=== PATIENT | male | born 1960 | race Caucasian/White ===

== ENCOUNTER 2017-10-05 11:47 | Outpatient (CLI) | payer OTHER ==
[~2017-10-05 11:47] MED LIST: HYDR-569 PO; METH500T6 PO
== END 2017-10-05 23:59 | disposition home or self-care (01) ==
LOC: VAS 11:47
PROVIDERS: ATTEND Family Medicine
DX: R59.9 Enlarged lymph nodes, unspecified (principal); Z86.718 Personal history of other venous thrombosis and embolism
CPT/HCPCS: 93971

== ENCOUNTER 2017-12-17 08:08 | Outpatient (CLI) | payer OTHER ==
[2017-12-17 08:48] LABS: BASOPHILS # (AUTO) 0.1 X10'3 (0-0.2); BASOPHILS % (AUTO) 1.2 % (0-1); EOSINOPHILS # (AUTO) 0.5 X10'3 (0-0.9); EOSINOPHILS % (AUTO) 7.7 % (0-6); HEMATOCRIT 43.1 % (42.0-52.0); HEMOGLOBIN 14.9 g/dl (14.0-17.9); LYMPHOCYTES # (AUTO) 1.4 X10'3 (1.1-4.8); LYMPHOCYTES % (AUTO) 20.7 % (21-51); MEAN CORPUSCULAR HEMOGLOBIN 29.2 PG (27.0-31.0); MEAN CORPUSCULAR HGB CONC 34.7 % (33.0-36.5); MEAN CORPUSCULAR VOLUME 84.2 FL (78-98); MEAN PLATELET VOLUME 8.5 FL (7.4-10.4); MONOCYTES # (AUTO) 0.4 X10'3 (0-0.9); MONOCYTES % (AUTO) 6.1 % (2-12); NEUTROPHILS # (AUTO) 4.3 X10'3 (1.8-7.7); NEUTROPHILS % (AUTO) 64.3 % (42-75); PLATELET COUNT 163 X10'3 (140-440); RED BLOOD COUNT 5.13 X10'6 (4.70-6.10); RED CELL DISTRIBUTION WIDTH 15.5 % (11.5-14.5); WHITE BLOOD COUNT 6.8 X10'3 (4.5-11.0)
[2017-12-17 08:51] LABS: CLARITY,URINE CLEAR (Clear); COLOR,URINE YELLOW (Yellow); GLUCOSE, URINE NEGATIVE (Neg); KETONES,URINE NEGATIVE (Neg); LEUKOCYTE ESTERASE ,URINE NEGATIVE (Neg); NITRITES, URINE NEGATIVE (Neg); OCCULT BLOOD,URINE NEGATIVE (Neg); PROTEIN,URINE NEGATIVE (Neg); UA COLLECTION TYPE CLN CATCH MIDSTREAM; UROBILINOGEN,URINE 0.2 E.U/dL (0.2-1.0)
[2017-12-17 09:31] LABS: ALANINE AMINOTRANSFERASE 26 U/L (12-78); ALBUMIN 3.6 G/DL (3.4-5.0); ALKALINE PHOSPHATASE 102 IU/L (46-116); ANION GAP 9 (8-16); ASPARTATE AMINO TRANSFERASE 17 U/L (10-37); BILIRUBIN,TOTAL 0.8 MG/DL (0.1-1.0); BLOOD UREA NITROGEN 24 MG/DL (7-18); BUN/CREATININE RATIO 25.5 (5.4-32.0); CHLORIDE 108 MMOL/L (99-107); CREATININE 0.94 MG/DL (0.60-1.10); GLUCOSE 113 MG/DL (70-104); SODIUM 145 MMOL/L (135-145); TOTAL CARBON DIOXIDE 28.1 MMOL/L (24-32); TOTAL PROTEIN 7.1 G/DL (6.4-8.2); eGFR 83 ML/MIN
[2017-12-17 09:32] LABS: CHOL/HDL RATIO 4.6 (0.00-4.99); CHOLESTEROL 187 MG/DL (0-200); HDL CHOLESTEROL 41 MG/DL (35-60); LDL CHOLESTEROL 133 MG/DL (50-100); TRIGLYCERIDES 56 MG/DL (20-135)
[2017-12-17 09:37] LABS: POTASSIUM 4.2 MMOL/L (3.5-5.1)
== END 2017-12-17 23:59 | disposition home or self-care (01) ==
LOC: LAB 08:08
PROVIDERS: ATTEND Family Medicine
DX: Z00.00 Encounter for general adult medical examination without abnormal findings (principal)
CPT/HCPCS: 36415; 80053; 80061; 81003; 84402; 84403; 84439; 84443; 85025

== ENCOUNTER 2018-01-08 11:34 | Outpatient (CLI) | payer OTHER ==
[2018-01-08 12:23] LABS: HEMATOCRIT 40.3 % (42.0-52.0); HEMOGLOBIN 13.8 g/dl (14.0-17.9); MEAN CORPUSCULAR HEMOGLOBIN 29.3 PG (27.0-31.0); MEAN CORPUSCULAR HGB CONC 34.2 % (33.0-36.5); MEAN CORPUSCULAR VOLUME 85.7 FL (78-98); MEAN PLATELET VOLUME 8.4 FL (7.4-10.4); PLATELET COUNT 201 X10'3 (140-440); RED CELL DISTRIBUTION WIDTH 15.8 % (11.5-14.5); WHITE BLOOD COUNT 6.7 X10'3 (4.5-11.0)
[2018-01-08 12:45] LABS: BASOPHILS % (MANUAL) 2 % (0-1); EOSINOPHILS % (MANUAL) 7 % (0-6); LYMPHOCYTES % (MANUAL) 32 % (21-51); MONOCYTES % (MANUAL) 6 % (2-12); NEUTROPHILS % (MANUAL) 47 % (42-75); PLATELET ESTIMATE NORMAL; REACTIVE LYMPHOCYTES % 6 % (0-0); TOTAL CELLS COUNTED 100
[2018-01-08 12:47] LABS: ANISOCYTOSIS 1+
== END 2018-01-08 23:59 ==
LOC: LAB 11:34
PROVIDERS: ATTEND Family Medicine
DX: K62.5 Hemorrhage of anus and rectum (principal)
CPT/HCPCS: 36415; 85025

== ENCOUNTER 2018-01-08 14:16 | Emergency (ER) | payer OTHER ==
[~2018-01-08] VITALS: Ht 180.3 cm; Wt 157.0 kg
[2018-01-08 15:19] LABS: ALANINE AMINOTRANSFERASE 23 U/L (12-78); ALBUMIN 3.3 G/DL (3.4-5.0); ALBUMIN/GLOBULIN RATIO 1.1 (1.1-1.5); ALKALINE PHOSPHATASE 90 IU/L (46-116); ANION GAP 6 (8-16); ASPARTATE AMINO TRANSFERASE 15 U/L (10-37); BILIRUBIN,TOTAL 0.6 MG/DL (0.1-1.0); BLOOD UREA NITROGEN 21 MG/DL (7-18); BUN/CREATININE RATIO 21.2 (5.4-32.0); CHLORIDE 109 MMOL/L (99-107); CREATININE 0.99 MG/DL (0.60-1.10); GLUCOSE 88 MG/DL (70-104); SODIUM 146 MMOL/L (135-145); TOTAL CARBON DIOXIDE 31.1 MMOL/L (24-32); TOTAL PROTEIN 6.3 G/DL (6.4-8.2); eGFR 78 ML/MIN
[2018-01-08 16:06] VITALS: BP 131/72
== END 2018-01-08 16:08 | disposition home or self-care (01) ==
LOC: ER 14:16
DX: K92.2 Gastrointestinal hemorrhage, unspecified (principal); Z98.890 Other specified postprocedural states; Z79.899 Other long term (current) drug therapy
CPT/HCPCS: 36415; 80053; 99284

== ENCOUNTER 2018-02-11 10:12 | Day surgery (SDC) | payer OTHER ==
[~2018-02-11] VITALS: Ht 182.9 cm; Wt 152.3 kg
[2018-02-11 10:22] VITALS: BP 140/92
[2018-02-11] MEDS ORDERED: MIDAZolam 5mg/5ml vial ONE (10:29)
[2018-02-11] MEDS ORDERED: fentaNYL/PF 50MCG/1 ML 2ML syringe ONE (10:29)
[2018-02-11] MEDS ORDERED: NO HOME MEDS (10:34)
[2018-02-11 12:11] VITALS: BP 138/84
[2018-02-11 12:21] VITALS: BP 139/76
[2018-02-11 12:31] VITALS: BP 128/72
== END 2018-02-11 12:50 | disposition home or self-care (01) ==
LOC: GI LAB 10:12
PROVIDERS: ATTEND Internal Medicine Gastroenterology
DX: K64.0 First degree hemorrhoids (principal); K57.30 Diverticulosis of large intestine without perforation or abscess without bleeding; G47.33 Obstructive sleep apnea (adult) (pediatric); Z90.49 Acquired absence of other specified parts of digestive tract; Z90.89 Acquired absence of other organs; Z72.89 Other problems related to lifestyle; Z79.899 Other long term (current) drug therapy; Z98.890 Other specified postprocedural states; Z88.5 Allergy status to narcotic agent
CPT/HCPCS: 45378; 99152; J2250; J3010; J7030; 50555; A4620; G0500

== ENCOUNTER 2018-07-07 10:12 | Outpatient (CLI) | payer OTHER ==
[~2018-07-07 10:12] MED LIST changes: -HYDR-569 PO; -METH500T6 PO; +NO HOME MEDS
[2018-07-07 11:06] LABS: BASOPHILS # (AUTO) 0.1 X10'3 (0-0.2); BASOPHILS % (AUTO) 0.9 % (0-1); EOSINOPHILS # (AUTO) 0.3 X10'3 (0-0.9); EOSINOPHILS % (AUTO) 5.1 % (0-6); HEMATOCRIT 41.9 % (42.0-52.0); LYMPHOCYTES # (AUTO) 1.7 X10'3 (1.1-4.8); LYMPHOCYTES % (AUTO) 24.6 % (21-51); MEAN CORPUSCULAR HEMOGLOBIN 29.4 PG (27.0-31.0); MEAN CORPUSCULAR HGB CONC 33.4 % (33.0-36.5); MEAN CORPUSCULAR VOLUME 87.8 FL (78-98); MEAN PLATELET VOLUME 8.1 FL (7.4-10.4); MONOCYTES # (AUTO) 0.4 X10'3 (0-0.9); MONOCYTES % (AUTO) 6.4 % (2-12); NEUTROPHILS # (AUTO) 4.3 X10'3 (1.8-7.7); PLATELET COUNT 197 X10'3 (140-440); RED BLOOD COUNT 4.77 X10'6 (4.70-6.10); RED CELL DISTRIBUTION WIDTH 14.6 % (11.5-14.5); WHITE BLOOD COUNT 6.8 X10'3 (4.5-11.0)
[2018-07-07 11:16] LABS: ALANINE AMINOTRANSFERASE 24 U/L (12-78); ALBUMIN 3.5 G/DL (3.4-5.0); ALBUMIN/GLOBULIN RATIO 1.1 (1.1-1.5); ALKALINE PHOSPHATASE 98 IU/L (46-116); ANION GAP 9 (8-16); ASPARTATE AMINO TRANSFERASE 20 U/L (10-37); BILIRUBIN,TOTAL 0.8 MG/DL (0.1-1.0); BLOOD UREA NITROGEN 19 MG/DL (7-18); BUN/CREATININE RATIO 19.8 (5.4-32.0); CALCIUM 8.9 MG/DL (8.5-10.1); CHLORIDE 104 MMOL/L (99-107); CHOL/HDL RATIO 4.5 (0.00-4.99); CHOLESTEROL 187 MG/DL (0-200); CREATININE 0.96 MG/DL (0.60-1.10); GLUCOSE 117 MG/DL (70-104); HDL CHOLESTEROL 42 MG/DL (35-60); LDL CHOLESTEROL 123 MG/DL (50-100); POTASSIUM 3.9 MMOL/L (3.5-5.1); SODIUM 144 MMOL/L (135-145); TOTAL CARBON DIOXIDE 31.4 MMOL/L (24-32); TOTAL PROTEIN 6.7 G/DL (6.4-8.2); TRIGLYCERIDES 87 MG/DL (20-135); eGFR 81 ML/MIN
[2018-07-07 12:12] LABS: CLARITY,URINE CLEAR (Clear); COLOR,URINE YELLOW (Yellow); GLUCOSE, URINE NEGATIVE (Neg); KETONES,URINE NEGATIVE (Neg); LEUKOCYTE ESTERASE ,URINE NEGATIVE (Neg); NITRITES, URINE NEGATIVE (Neg); OCCULT BLOOD,URINE NEGATIVE (Neg); PROTEIN,URINE NEGATIVE (Neg); UROBILINOGEN,URINE 0.2 E.U/dL (0.2-1.0)
[2018-07-07 12:18] LABS: UA COLLECTION TYPE CLN CATCH MIDSTREAM
== END 2018-07-07 23:59 | disposition home or self-care (01) ==
LOC: 64 CT 10:12
PROVIDERS: ATTEND Family Medicine
DX: Z12.5 Encounter for screening for malignant neoplasm of prostate (principal); N20.0 Calculus of kidney; K42.9 Umbilical hernia without obstruction or gangrene; K76.9 Liver disease, unspecified; E66.9 Obesity, unspecified; E29.1 Testicular hypofunction; R73.03 Prediabetes
CPT/HCPCS: 36415; 74176; 80053; 80061; 81003; 84153; 84439; 84443; 85025

== ENCOUNTER 2018-07-09 09:10 | Outpatient (CLI) | payer OTHER ==
[2018-07-09] MEDS ORDERED: iohexol 300mg/ml 100ml inj. ONE (09:18)
== END 2018-07-09 23:59 | disposition home or self-care (01) ==
LOC: 64 CT 09:10
PROVIDERS: ATTEND Family Medicine
DX: N28.89 Other specified disorders of kidney and ureter (principal); K76.89 Other specified diseases of liver; Z90.49 Acquired absence of other specified parts of digestive tract
CPT/HCPCS: 74160; Q9967

== ENCOUNTER 2018-10-21 18:49 | Inpatient (IN) | payer OTHER ==
[~2018-10-21] VITALS: Ht 182.9 cm; Wt 155.0 kg
[2018-10-21 19:27] LABS: BASOPHILS % (AUTO) 0.3 % (0-1); EOSINOPHILS # (AUTO) 0.3 X10'3 (0-0.9); EOSINOPHILS % (AUTO) 3.8 % (0-6); HEMATOCRIT 42.7 % (42.0-52.0); HEMOGLOBIN 14.4 g/dl (14.0-17.9); LYMPHOCYTES # (AUTO) 1.6 X10'3 (1.1-4.8); LYMPHOCYTES % (AUTO) 20.9 % (21-51); MEAN CORPUSCULAR HEMOGLOBIN 29.7 PG (27.0-31.0); MEAN CORPUSCULAR HGB CONC 33.8 g/dL (33.0-36.5); MEAN CORPUSCULAR VOLUME 87.9 FL (78-98); MEAN PLATELET VOLUME 8.6 FL (7.4-10.4); MONOCYTES # (AUTO) 0.5 X10'3 (0-0.9); MONOCYTES % (AUTO) 6.6 % (2-12); NEUTROPHILS # (AUTO) 5.3 X10'3 (1.8-7.7); NEUTROPHILS % (AUTO) 68.4 % (42-75); PLATELET COUNT 206 X10'3 (140-440); RED BLOOD COUNT 4.85 X10'6 (4.70-6.10); RED CELL DISTRIBUTION WIDTH 14.8 % (11.5-14.5); WHITE BLOOD COUNT 7.7 X10'3 (4.5-11.0)
[2018-10-21 19:41] LABS: ALANINE AMINOTRANSFERASE 24 U/L (12-78); ALBUMIN/GLOBULIN RATIO 1.3 (1.1-1.5); ALKALINE PHOSPHATASE 89 IU/L (46-116); ANION GAP 11 (8-16); ASPARTATE AMINO TRANSFERASE 18 U/L (10-37); BILIRUBIN,TOTAL 0.9 MG/DL (0.1-1.0); BLOOD UREA NITROGEN 22 MG/DL (7-18); BUN/CREATININE RATIO 19.8 (5.4-32.0); CALCIUM 9.5 MG/DL (8.5-10.1); CHLORIDE 103 MMOL/L (99-107); CREATININE 1.11 MG/DL (0.60-1.10); GLUCOSE 118 MG/DL (70-104); POTASSIUM 4.1 MMOL/L (3.5-5.1); SODIUM 143 MMOL/L (135-145); TOTAL CARBON DIOXIDE 29.5 MMOL/L (24-32); TOTAL PROTEIN 7.2 G/DL (6.4-8.2); eGFR 69 ML/MIN
[2018-10-21 19:42] LABS: INR 1.1 INR; PROTHROMBIN TIME 11.4 SECONDS (9.0-12.0)
[2018-10-21 19:46] LABS: TROPONIN I < 0.04 NG/ML (0.0-0.05)
[2018-10-21 19:53] LABS: CLARITY,URINE CLEAR (Clear); COLOR,URINE YELLOW (Yellow); GLUCOSE, URINE NEGATIVE (Neg); KETONES,URINE NEGATIVE (Neg); LEUKOCYTE ESTERASE ,URINE NEGATIVE (Neg); NITRITES, URINE NEGATIVE (Neg); OCCULT BLOOD,URINE NEGATIVE (Neg); PROTEIN,URINE NEGATIVE (Neg); UROBILINOGEN,URINE 0.2 E.U/dL (0.2-1.0)
[2018-10-21 19:56] LABS: UA COLLECTION TYPE VOIDED
--- NOTE | 2018-10-21 20:30 | NUR ---
PT COMPLAINS OF INTERMITTENT LOWER ABD PAIN, PER PT STARTS MID EPIGASTRIC AND RADIATES TO LEFT AND RIGHT, PT REPORTS SITTING UP AT EDGE OF THE BED IS HIS POSITION OF COMFORT.
[2018-10-21] MEDS ORDERED: diphenhydrAMINE 50 mg/ml inj IV ONE (20:55)
[2018-10-21] MEDS ORDERED: LORazepam 2 mg/ml vial IV ONE (20:55)
[2018-10-21] MEDS ORDERED: metoclopramide 5 mg/ml inj IV ONE (20:55)
[2018-10-21] MEDS ORDERED: morphine 4 MG/ML inj SYRINge IV ONE (20:55)
[2018-10-21] MEDS ORDERED: temazepam 15mg capsule PO PRN (21:00)
--- NOTE | 2018-10-21 21:00 | NUR ---
PER MD BYNUM NO NEED FOR NG TUBE AT THIS TIME.
--- NOTE | 2018-10-21 22:19 | NUR ---
PT APPEARS TO BE SLEEPING.
[2018-10-21] MEDS ORDERED: normal saline 1000ML IV soln IVB ONE (23:20)
[2018-10-21] MEDS: normal saline 1000ml 1,000 ML IV SCH (23:37)
[2018-10-21] MEDS ORDERED: magnesium hydroxide 30ml (MOM) UD suspension PO PRN (23:40)
[2018-10-21] MEDS ORDERED: mag hydrox/Alum hydrox/simeth 30ml oral suspension PO PRN (23:40)
[2018-10-21] MEDS ORDERED: HYDROcodone/acetaminophen 10/325mg tab PO PRN (23:40)
[2018-10-21] MEDS ORDERED: acetaminophen 325mg tablet PO PRN ×2 (23:40)
[2018-10-21] MEDS ORDERED: morphine 4 MG/ML inj SYRINge IV PRN (23:40)
[2018-10-22] VITALS (17 sets, daily range): BP systolic 137–172; BP diastolic 70–112
--- NOTE | 2018-10-22 | NUR ---
Patient c/o full bladder and unable to void. straight cath inserted, only 50cc drained. Patient helped to stand up and voided 400cc into urinal.
--- NOTE | 2018-10-22 00:32 | NUR ---
PT MOVED FROM ED BED 5 TO ED BED 7 AND PLACED ON HOSPITAL BED.
--- NOTE | 2018-10-22 02:53 | NUR ---
PT UP TO USE THE RESTROOM, REMAINS PAIN FREE.
[2018-10-22 07:56] LABS: BASOPHILS % (AUTO) 0.6 % (0-1); EOSINOPHILS # (AUTO) 0.2 X10'3 (0-0.9); EOSINOPHILS % (AUTO) 4.2 % (0-6); HEMATOCRIT 41.3 % (42.0-52.0); HEMOGLOBIN 13.9 g/dl (14.0-17.9); LYMPHOCYTES # (AUTO) 1.3 X10'3 (1.1-4.8); LYMPHOCYTES % (AUTO) 23.1 % (21-51); MEAN CORPUSCULAR HEMOGLOBIN 29.4 PG (27.0-31.0); MEAN CORPUSCULAR HGB CONC 33.7 g/dL (33.0-36.5); MEAN CORPUSCULAR VOLUME 87.3 FL (78-98); MEAN PLATELET VOLUME 8.4 FL (7.4-10.4); MONOCYTES # (AUTO) 0.3 X10'3 (0-0.9); MONOCYTES % (AUTO) 5.9 % (2-12); NEUTROPHILS # (AUTO) 3.8 X10'3 (1.8-7.7); NEUTROPHILS % (AUTO) 66.2 % (42-75); PLATELET COUNT 164 X10'3 (140-440); RED BLOOD COUNT 4.73 X10'6 (4.70-6.10); RED CELL DISTRIBUTION WIDTH 14.9 % (11.5-14.5); WHITE BLOOD COUNT 5.8 X10'3 (4.5-11.0)
[2018-10-22 08:18] LABS: ALBUMIN 3.6 G/DL (3.4-5.0); ANION GAP 7 (8-16); BLOOD UREA NITROGEN 15 MG/DL (7-18); BUN/CREATININE RATIO 16.7 (5.4-32.0); CALCIUM 8.9 MG/DL (8.5-10.1); CHLORIDE 107 MMOL/L (99-107); GLUCOSE 104 MG/DL (70-104); SODIUM 144 MMOL/L (135-145); TOTAL CARBON DIOXIDE 29.9 MMOL/L (24-32); eGFR 87 ML/MIN
[2018-10-22] MEDS: normal saline 1000ml 1,000 ML IV SCH ×2 (09:37→19:37)
[2018-10-22] MEDS ORDERED: CALCIUM PO (13:11)
[2018-10-22] MEDS ORDERED: MULTIVITAMIN PO (13:11)
[2018-10-22] MEDS ORDERED: OPC PO (13:11)
[2018-10-22] MEDS ORDERED: COQ PO (13:11)
[2018-10-22] MEDS ORDERED: VITAMIN B COMPLEX (13:11)
[2018-10-22] MEDS ORDERED: ceFAZolin 1000mg inj ONE (16:00)
[2018-10-22] MEDS ORDERED: BUPIVAcaine/PF 2.5mg/ml (0.25%) 10ml vial ONE (16:00)
--- NOTE | 2018-10-22 16:30 | NUR ---
Patient to OR.
[2018-10-22] MEDS ORDERED: fentaNYL /PF 50mcg/ml 5ml ampule ONE (16:50)
[2018-10-22] MEDS ORDERED: ringers solution, lacted 1,000 ML IV SCH (18:17)
[2018-10-22] MEDS ORDERED: ondansetron/PF 4mg/2ml inj IV PRN ×2 (18:20→19:15)
[2018-10-22] MEDS ORDERED: fentaNYL/PF 50MCG/1 ML 2ML syringe IV PRN (18:20)
[2018-10-22] MEDS ORDERED: meperidine/PF 25mg/ml syringe IV PRN ×2 (18:20)
[2018-10-22] MEDS ORDERED: LIDOcaine 1%/PF 5ML 10 MG/ML VIAL ONE (18:30)
--- NOTE | 2018-10-22 18:30 | NUR ---
Patient in room [facility]. I have received report from Loree luque and had the opportunity to ask questions and assume patient care.
[2018-10-22] MEDS ORDERED: ondansetron/PF 4mg/2ml inj ONE (18:31)
[2018-10-22] MEDS ORDERED: propofol inj 20 ML IV ONE (18:31)
[2018-10-22] MEDS ORDERED: glycopyrrolate 0.2mg/ml inj ONE (18:33)
[2018-10-22] MEDS ORDERED: sugammadex 200mg/2ml injection IV ONE (19:01)
[2018-10-22] MEDS ORDERED: labetalol 20mg/4ml (5mg/ml) syringe IV ONE (19:08)
--- NOTE | 2018-10-22 19:09 | NUR ---
At this time patient remains off the floor.
[2018-10-22] MEDS ORDERED: naloxone 0.4 mg/ml inj ONE (19:11)
[2018-10-22] MEDS ORDERED: HYDROcodone/acetaminophen 10/325mg tab PO PRN (19:15)
--- NOTE | 2018-10-22 19:25 | NUR ---
Received from OR via bed, accompanied by Anesthesiologist. Report received. Initial physical assessment done and recorded.
[2018-10-22] MEDS: fentaNYL/PF 50MCG/1 ML 2ML syringe IV PRN ×2 (19:31→19:38)
[2018-10-22] MEDS ORDERED: HYDROcodone/acetaminophen 10/325mg tab PO ONE (20:20)
--- NOTE | 2018-10-22 20:25 | NUR ---
Discharge criteria met, report to receiving floor. Transferred to room in stable condition. accompanied patient to room, medicaated upon arrival with [place], contiuous pulse ox and CPAP ordered.
[2018-10-22] MEDS: potassium CL 20mEq in D5-1/2NS 1,000 ML IV SCH (22:57)
[2018-10-22] MEDS ORDERED: LIDOcaine 2% 10ml TOPICAL JELLY (Urojet) MM ONE (23:40)
[2018-10-23] VITALS: BP 156/89
[2018-10-23] MEDS: ceFAZolin inj. 1,000 MG in dextrose 5%-water 50ml 50 ML IV SCH ×3 (00:36→16:23)
[2018-10-23 00:45] VITALS: BP 168/91
[2018-10-23] MEDS: morphine 4 MG/ML inj SYRINge IV PRN ×2 (02:18→07:26)
[2018-10-23] MEDS: potassium CL 20mEq in D5-1/2NS 1,000 ML IV SCH ×4 (03:11→23:37)
[2018-10-23] MEDS: HYDROcodone/acetaminophen 5mg/325mg tablet PO PRN (05:06)
[2018-10-23] MEDS: normal saline 1000ml 1,000 ML IV SCH ×2 (05:37→14:44)
--- NOTE | 2018-10-23 06:25 | NUR ---
Problems reprioritized. Patient report given, questions answered & plan of care reviewed with Florence ALONZO.
[2018-10-23 07:00] LABS: ALBUMIN 3.5 G/DL (3.4-5.0); ANION GAP 11 (8-16); BLOOD UREA NITROGEN 13 MG/DL (7-18); BUN/CREATININE RATIO 12.9 (5.4-32.0); CALCIUM 8.8 MG/DL (8.5-10.1); CHLORIDE 104 MMOL/L (99-107); CREATININE 1.01 MG/DL (0.60-1.10); GLUCOSE 199 MG/DL (70-104); SODIUM 142 MMOL/L (135-145); TOTAL CARBON DIOXIDE 26.7 MMOL/L (24-32); eGFR 76 ML/MIN
[2018-10-23 07:14] LABS: BASOPHILS % (AUTO) 0 % (0-1); EOSINOPHILS # (AUTO) 0.1 X10'3 (0-0.9); EOSINOPHILS % (AUTO) 1.2 % (0-6); HEMATOCRIT 41.7 % (42.0-52.0); HEMOGLOBIN 14.1 g/dl (14.0-17.9); LYMPHOCYTES # (AUTO) 0.3 X10'3 (1.1-4.8); LYMPHOCYTES % (AUTO) 3.8 % (21-51); MEAN CORPUSCULAR HEMOGLOBIN 29.7 PG (27.0-31.0); MEAN CORPUSCULAR HGB CONC 33.9 g/dL (33.0-36.5); MEAN CORPUSCULAR VOLUME 87.7 FL (78-98); MEAN PLATELET VOLUME 9.2 FL (7.4-10.4); MONOCYTES % (AUTO) 0.4 % (2-12); NEUTROPHILS # (AUTO) 7.8 X10'3 (1.8-7.7); NEUTROPHILS % (AUTO) 94.6 % (42-75); PLATELET COUNT 181 X10'3 (140-440); RED BLOOD COUNT 4.75 X10'6 (4.70-6.10); WHITE BLOOD COUNT 8.2 X10'3 (4.5-11.0)
[2018-10-23 08:00] VITALS: BP 155/83
[2018-10-23 11:00] VITALS: BP 151/75
[2018-10-23] MEDS: ondansetron/PF 4mg/2ml inj IV PRN (12:29)
[2018-10-23] MEDS ORDERED: metoclopramide 5 mg/ml inj IV PRN (16:20)
--- NOTE | 2018-10-23 18:33 | NUR ---
Patient in room [facility]. I have received report from Florence ALONZO and had the opportunity to ask questions and assume patient care.
[2018-10-23] MEDS ORDERED: oxyCODONE/APAP 10/325mg tablet PO PRN ×2 (18:40)
[2018-10-23 19:00] VITALS: BP 153/80
[2018-10-24] VITALS: BP 131/70
[2018-10-24 06:08] LABS: BASOPHILS % (AUTO) 0.3 % (0-1); EOSINOPHILS # (AUTO) 0.1 X10'3 (0-0.9); EOSINOPHILS % (AUTO) 1.4 % (0-6); HEMATOCRIT 36.9 % (42.0-52.0); HEMOGLOBIN 12.4 g/dl (14.0-17.9); LYMPHOCYTES # (AUTO) 1.3 X10'3 (1.1-4.8); LYMPHOCYTES % (AUTO) 13.6 % (21-51); MEAN CORPUSCULAR HEMOGLOBIN 29.7 PG (27.0-31.0); MEAN CORPUSCULAR HGB CONC 33.7 g/dL (33.0-36.5); MEAN CORPUSCULAR VOLUME 88.2 FL (78-98); MEAN PLATELET VOLUME 8.8 FL (7.4-10.4); MONOCYTES # (AUTO) 0.6 X10'3 (0-0.9); MONOCYTES % (AUTO) 6.7 % (2-12); NEUTROPHILS # (AUTO) 7.4 X10'3 (1.8-7.7); PLATELET COUNT 153 X10'3 (140-440); RED BLOOD COUNT 4.18 X10'6 (4.70-6.10); WHITE BLOOD COUNT 9.4 X10'3 (4.5-11.0)
[2018-10-24 06:22] LABS: ALBUMIN 3.1 G/DL (3.4-5.0); ANION GAP 7 (8-16); BLOOD UREA NITROGEN 9 MG/DL (7-18); BUN/CREATININE RATIO 9.2 (5.4-32.0); CALCIUM 8.6 MG/DL (8.5-10.1); CHLORIDE 106 MMOL/L (99-107); CREATININE 0.98 MG/DL (0.60-1.10); GLUCOSE 126 MG/DL (70-104); POTASSIUM 3.6 MMOL/L (3.5-5.1); SODIUM 143 MMOL/L (135-145); TOTAL CARBON DIOXIDE 29.8 MMOL/L (24-32); eGFR 79 ML/MIN
--- NOTE | 2018-10-24 06:53 | NUR ---
Problems reprioritized. Patient report given, questions answered & plan of care reviewed with Florence ALNOZO.
[2018-10-24 07:00] VITALS: BP 166/93
[2018-10-24] MEDS: HYDROcodone/acetaminophen 5mg/325mg tablet PO PRN (07:54)
[2018-10-24] MEDS: ketorolac trometh. 30mg/ml inj. IV PRN ×2 (07:54→21:09)
[2018-10-24 11:00] VITALS: BP 139/77
[2018-10-24] MEDS: potassium CL 20mEq in D5-1/2NS 1,000 ML IV SCH (11:11)
[2018-10-24] MEDS: oxyCODONE/APAP 5-325mg tablet PO PRN ×2 (12:17→18:13)
--- NOTE | 2018-10-24 18:30 | NUR ---
Patient in room [facility]. I have received report from MIKY and had the opportunity to ask questions and assume patient care.
[2018-10-24 19:20] VITALS: BP 157/80
[2018-10-25] VITALS: BP 152/76
[2018-10-25] MEDS: oxyCODONE/APAP 5-325mg tablet PO PRN (03:30)
--- NOTE | 2018-10-25 03:34 | NUR ---
PT HAD +GAS AND + LOOSE BM
[2018-10-25 05:35] LABS: ALBUMIN 3.2 G/DL (3.4-5.0); ANION GAP 8 (8-16); BLOOD UREA NITROGEN 14 MG/DL (7-18); BUN/CREATININE RATIO 16.7 (5.4-32.0); CALCIUM 8.8 MG/DL (8.5-10.1); CHLORIDE 106 MMOL/L (99-107); CREATININE 0.84 MG/DL (0.60-1.10); GLUCOSE 104 MG/DL (70-104); POTASSIUM 3.9 MMOL/L (3.5-5.1); SODIUM 143 MMOL/L (135-145); TOTAL CARBON DIOXIDE 28.9 MMOL/L (24-32); eGFR > 90 ML/MIN
[2018-10-25 05:40] LABS: BASOPHILS # (AUTO) 0.1 X10'3 (0-0.2); BASOPHILS % (AUTO) 0.9 % (0-1); EOSINOPHILS # (AUTO) 0.3 X10'3 (0-0.9); HEMATOCRIT 38.9 % (42.0-52.0); LYMPHOCYTES # (AUTO) 1.2 X10'3 (1.1-4.8); LYMPHOCYTES % (AUTO) 18.2 % (21-51); MEAN CORPUSCULAR HEMOGLOBIN 29.6 PG (27.0-31.0); MEAN CORPUSCULAR HGB CONC 33.5 g/dL (33.0-36.5); MEAN CORPUSCULAR VOLUME 88.2 FL (78-98); MEAN PLATELET VOLUME 9.2 FL (7.4-10.4); MONOCYTES # (AUTO) 0.6 X10'3 (0-0.9); MONOCYTES % (AUTO) 8.7 % (2-12); NEUTROPHILS # (AUTO) 4.7 X10'3 (1.8-7.7); NEUTROPHILS % (AUTO) 68.2 % (42-75); PLATELET COUNT 127 X10'3 (140-440); RED BLOOD COUNT 4.41 X10'6 (4.70-6.10); RED CELL DISTRIBUTION WIDTH 15.2 % (11.5-14.5); WHITE BLOOD COUNT 6.9 X10'3 (4.5-11.0)
--- NOTE | 2018-10-25 06:05 | NUR ---
Problems reprioritized. Patient report given, questions answered & plan of care reviewed with HERNANDEZ.
--- NOTE | 2018-10-25 06:35 | NUR ---
Patient in room [facility]. I have received report from OLIVIA ALONZO and had the opportunity to ask questions and assume patient care.
[2018-10-25 06:38] VITALS: BP 158/73
[2018-10-25 07:00] VITALS: BP 158/73
[2018-10-25] MEDS: ondansetron/PF 4mg/2ml inj IV PRN (08:42)
[2018-10-25 11:00] VITALS: BP 160/85
[2018-10-25 11:22] VITALS: BP 160/85
[2018-10-25] MEDS ORDERED: AMLO5TAB4 PO (12:49)
[2018-10-25] MEDS ORDERED: amLODIPine 5mg tablet PO ONE (12:50)
[2018-10-25] MEDS ORDERED: PANT40TA4 PO (12:53)
[2018-10-25] MEDS ORDERED: ONDA4TAB6 PO (12:53)
[2018-10-25] MEDS: ketorolac trometh. 30mg/ml inj. IV PRN (13:42)
== END 2018-10-25 14:30 | disposition home or self-care (01) | DRG 354 ==
LOC: ER 18:50 → ED HOLD 23:37 → SUR 3N 10-22 08:01
PROVIDERS: ADMIT Hospitalist; ATTEND Family Medicine
PROC: 0WUF4JZ Supplement Abdominal Wall with Synthetic Substitute, Percutaneous Endoscopic Approach (ICD-10-PCS; principal; 2018-10-22 17:30)
PROC: 5A09357 Assistance with Respiratory Ventilation, Less than 24 Consecutive Hours, Continuous Positive Airway Pressure (ICD-10-PCS; 2018-10-25)
DX: K42.0 Umbilical hernia with obstruction, without gangrene (principal); K56.7 Ileus, unspecified; Z68.42 Body mass index [BMI] 45.0-49.9, adult; E66.01 Morbid (severe) obesity due to excess calories; K76.9 Liver disease, unspecified; N28.89 Other specified disorders of kidney and ureter; Z87.442 Personal history of urinary calculi; Z90.49 Acquired absence of other specified parts of digestive tract
CPT/HCPCS: 96374; 96375; 99285; Z7506; 36415; 71045; 74176; 80048; 80053; 81003; 84484; 85025; 85610; 87070; 93005; A7000; C1758; C1781; C9399; G0378; J0690; J1200; J1885; J2001; J2060; J2270; J2310; J2405; J2704; J2765; J3010; J3490; J7030; J7060; J7120

== ENCOUNTER 2018-10-31 17:15 | Emergency (ER) | payer OTHER ==
[~2018-10-31] VITALS: Ht 182.9 cm; Wt 150.0 kg
[~2018-10-31 17:15] MED LIST changes: +AMLO5TAB4 PO; +CALCIUM PO; +COQ PO; +MULTIVITAMIN PO; -NO HOME MEDS; +ONDA4TAB6 PO; +PANT40TA4 PO; +VITAMIN B COMPLEX
[2018-10-31 18:31] VITALS: BP 159/87
[2018-10-31 18:44] LABS: CLARITY,URINE CLEAR (Clear); COLOR,URINE AMBER (Yellow); GLUCOSE, URINE NEGATIVE (Neg); KETONES,URINE NEGATIVE (Neg); LEUKOCYTE ESTERASE ,URINE NEGATIVE (Neg); NITRITES, URINE NEGATIVE (Neg); OCCULT BLOOD,URINE TRACE-INTACT (Neg); PH,URINE 7.5 (4.8-8.0); PROTEIN,URINE NEGATIVE (Neg); UROBILINOGEN,URINE 0.2 E.U/dL (0.2-1.0)
[2018-10-31 18:45] LABS: UA COLLECTION TYPE STRAIGHT CATH
[2018-10-31 19:02] LABS: BACTERIA,URINE NONE SEEN /HPF (Neg); MUCUS STRANDS FEW /LPF (Neg); SQUAMOUS EPITHELIAL CELL,UR NONE SEEN /LPF (FEW); WBC,URINE 0-4 /HPF (0-4)
[2018-10-31 19:03] LABS: AMORPHOUS PHOSPHATES 2+
--- NOTE | 2018-10-31 19:04 | NUR ---
PT HAS COUDE PICKENS IN PLACE WITH LEG BAG. PT EDUCATED ABOUT PICKENS CARE, EMPTYING BAG, HYGIENE. PT STATED UNDERSTANDING OF INSTRUCTIONS AND CAUTIONS.
[2018-10-31] MEDS ORDERED: PER5325T PO (19:17)
== END 2018-10-31 19:38 | disposition home or self-care (01) ==
LOC: ER 17:16
DX: R33.9 Retention of urine, unspecified (principal); Z87.442 Personal history of urinary calculi; Z88.6 Allergy status to analgesic agent; Z98.890 Other specified postprocedural states; Z79.899 Other long term (current) drug therapy; Z90.49 Acquired absence of other specified parts of digestive tract
CPT/HCPCS: 51702; 81001; 99284

== ENCOUNTER 2018-11-03 11:42 | Emergency (ER) | payer OTHER ==
[~2018-11-03] VITALS: Ht 182.9 cm; Wt 150.0 kg
[~2018-11-03 11:42] MED LIST changes: +PER5325T PO
--- NOTE | 2018-11-03 12:45 | NUR ---
Spoke to Dr. Rosenbaum regarding pt's symptoms. Upon entering the pt's room, his catheter was out of the stat-lock and hanging with the full weight of the leg bag pulling against pt's catheter. Per Dr. Rosenbaum's reccomendation the catheter balloon was deflated, catheter was advanced and balloon was then reinflated. This immediately relieved patient's complaints of severe penile pain. Pt was educated on proper use of the stat-lock as well as attachment of the leg bag.
[2018-11-03 13:38] VITALS: BP 160/105
== END 2018-11-03 13:40 | disposition home or self-care (01) ==
LOC: ER 11:44
DX: T83.038A Leakage of other urinary catheter, initial encounter (principal); Z90.49 Acquired absence of other specified parts of digestive tract; Z88.6 Allergy status to analgesic agent
CPT/HCPCS: 99284

== ENCOUNTER 2018-11-05 09:07 | Emergency (ER) | payer OTHER ==
[~2018-11-05] VITALS: Ht 177.8 cm; Wt 140.0 kg
[2018-11-05 09:29] VITALS: BP 167/107
== END 2018-11-05 10:23 | disposition home or self-care (01) ==
LOC: ER 09:08
DX: T83.038D Leakage of other urinary catheter, subsequent encounter (principal); Z90.49 Acquired absence of other specified parts of digestive tract; Z88.5 Allergy status to narcotic agent; Z79.899 Other long term (current) drug therapy
CPT/HCPCS: 99281

== ENCOUNTER 2018-11-07 20:38 | Emergency (ER) | payer OTHER ==
[~2018-11-07] VITALS: Ht 182.9 cm; Wt 119.0 kg
[2018-11-07 20:47] VITALS: BP 135/91
--- NOTE | 2018-11-07 21:29 | NUR ---
BLADDER IRRIGATED, PER [facility] ORDER. NO RESISTANCE NOTED; URINE FLOWING WITHOUT ISSUE. PT DENIED PAIN.
== END 2018-11-07 21:47 | disposition home or self-care (01) ==
LOC: ER 20:39
DX: T83.83XA Hemorrhage due to genitourinary prosthetic devices, implants and grafts, initial encounter (principal); Z90.49 Acquired absence of other specified parts of digestive tract; Z88.6 Allergy status to analgesic agent; Y73.8 Miscellaneous gastroenterology and urology devices associated with adverse incidents, not elsewhere classified; Y92.89 Other specified places as the place of occurrence of the external cause
CPT/HCPCS: 51700; 99284

== ENCOUNTER 2018-11-12 05:47 | Emergency (ER) | payer OTHER ==
[~2018-11-12] VITALS: Ht 198.1 cm; Wt 150.0 kg
[2018-11-12] MEDS ORDERED: acetaminophen 325mg tablet PO STA (06:18)
[2018-11-12] MEDS ORDERED: acetaminophen 325mg tablet PO ONE (06:20)
[2018-11-12] MEDS ORDERED: normal saline 1000ML IV soln IV ONE (06:20)
[2018-11-12 07:11] LABS: BASOPHILS % (AUTO) 0.2 % (0-1); EOSINOPHILS # (AUTO) 0.1 X10'3 (0-0.9); EOSINOPHILS % (AUTO) 1.3 % (0-6); HEMATOCRIT 38.4 % (42.0-52.0); HEMOGLOBIN 13.1 g/dl (14.0-17.9); LYMPHOCYTES # (AUTO) 0.5 X10'3 (1.1-4.8); LYMPHOCYTES % (AUTO) 5.3 % (21-51); MEAN CORPUSCULAR HEMOGLOBIN 29.3 PG (27.0-31.0); MEAN CORPUSCULAR VOLUME 86.2 FL (78-98); MEAN PLATELET VOLUME 8.2 FL (7.4-10.4); MONOCYTES # (AUTO) 0.7 X10'3 (0-0.9); MONOCYTES % (AUTO) 7.4 % (2-12); NEUTROPHILS # (AUTO) 8.3 X10'3 (1.8-7.7); NEUTROPHILS % (AUTO) 85.8 % (42-75); PLATELET COUNT 203 X10'3 (140-440); RED BLOOD COUNT 4.45 X10'6 (4.70-6.10); RED CELL DISTRIBUTION WIDTH 14.6 % (11.5-14.5); WHITE BLOOD COUNT 9.7 X10'3 (4.5-11.0)
[2018-11-12 07:29] LABS: INR 1.1 INR; PROTHROMBIN TIME 11.3 SECONDS (9.0-12.0)
[2018-11-12 07:35] LABS: ALANINE AMINOTRANSFERASE 17 U/L (12-78); ALBUMIN/GLOBULIN RATIO 0.9 (1.1-1.5); ALKALINE PHOSPHATASE 87 IU/L (46-116); ANION GAP 9 (8-16); ASPARTATE AMINO TRANSFERASE 14 U/L (10-37); BILIRUBIN,TOTAL 0.8 MG/DL (0.1-1.0); BLOOD UREA NITROGEN 19 MG/DL (7-18); BUN/CREATININE RATIO 17.9 (5.4-32.0); CALCIUM 8.8 MG/DL (8.5-10.1); CHLORIDE 104 MMOL/L (99-107); CREATININE 1.06 MG/DL (0.60-1.10); GLUCOSE 149 MG/DL (70-104); POTASSIUM 3.7 MMOL/L (3.5-5.1); SODIUM 139 MMOL/L (135-145); TOTAL CARBON DIOXIDE 26.4 MMOL/L (24-32); TOTAL PROTEIN 6.4 G/DL (6.4-8.2); eGFR 72 ML/MIN
[2018-11-12 08:14] LABS: CLARITY,URINE CLEAR (Clear); COLOR,URINE YELLOW (Yellow); GLUCOSE, URINE NEGATIVE (Neg); KETONES,URINE NEGATIVE (Neg); LEUKOCYTE ESTERASE ,URINE NEGATIVE (Neg); NITRITES, URINE NEGATIVE (Neg); OCCULT BLOOD,URINE TRACE-INTACT (Neg); PH,URINE 7.5 (4.8-8.0); PROTEIN,URINE TRACE mg/dl (Neg); UROBILINOGEN,URINE 0.2 E.U/dL (0.2-1.0)
[2018-11-12 08:16] LABS: UA COLLECTION TYPE CLN CATCH MIDSTREAM
[2018-11-12 08:20] LABS: BACTERIA,URINE NONE SEEN /HPF (Neg); MUCUS STRANDS NONE SEEN /LPF (Neg); RBC,URINE 0-2 /HPF (0-2); SQUAMOUS EPITHELIAL CELL,UR NONE SEEN /LPF (FEW); WBC,URINE 0-4 /HPF (0-4)
[2018-11-12 10:07] VITALS: BP 134/71
[2018-11-13] MEDS ORDERED: ACET-2119 PO (18:38)
[2018-11-13] MEDS ORDERED: FLO0.4C PO (18:38)
== END 2018-11-12 10:08 | disposition home or self-care (01) ==
LOC: ER 05:47
DX: R50.9 Fever, unspecified (principal); E11.9 Type 2 diabetes mellitus without complications; G47.30 Sleep apnea, unspecified; R39.15 Urgency of urination; Z88.5 Allergy status to narcotic agent; Z87.442 Personal history of urinary calculi; Z90.49 Acquired absence of other specified parts of digestive tract
CPT/HCPCS: 36415; 71046; 80053; 81001; 83605; 84145; 85025; 85610; 87040; 87077; 87088; 87186; 87502; 87503; 93005; 99284; J7030

== ENCOUNTER 2018-11-12 15:49 | Emergency (ER) | payer OTHER ==
[~2018-11-12] VITALS: Ht 182.9 cm; Wt 150.0 kg
[2018-11-12 16:16] VITALS: BP 151/67
[2018-11-12] MEDS ORDERED: acetaminophen 325mg tablet PO ONE (20:00)
--- NOTE | 2018-11-12 20:00 | NUR ---
VIKY RONQUILLO AND I IN ROOM. PATIENT WAS HERE LESS THAN 24 HOURS AGO AND HAD A FULL WORKUP THAT WAS WNL. PATIENT WANTS TO STOP BEING COLD: HE IS WEARING MULTIPLE LAYERS AND HIS ORAL TEMP IS 99.9. P
--- NOTE | 2018-11-12 20:15 | NUR ---
VIKY RONQUILLO AND I LOOKED AT PATIENT'S ABDOMEN. REMOVED DRESSINGS FROM PATIENT'S HERNIA SURGERY REVEALING WELL APPROXIMATED INCISIONS WITH STERI STRIPS AND A RIGTH LOWER ABDOMEN SKIN TEAR ABOUT 0.5CM X 0.5 CM. PAND AID PLACED OVER SKIN TEAR. NO REDNESS, NO SWELLING NOTED; PATIENT'S SKIN IS WARM TO THE TOUCH.
--- NOTE | 2018-11-12 20:19 | NUR ---
AFTER PA AND I LEFT THE ROOM, PATIENT'S FRIEND CAME OUT OF THE ROOM AND ASKED ME TO "LOOK AT ANOTHER SPOT ON HIM". I WENT INTO THE ROOM AND THE PATIENT AWANTED ME TO LOOK AT HIS GROIN. I ASKED HIM TO REMOVE HIS PANTS AND GAVE HIM A WARM BLANKET. I RETURNED TO THE ROOM WITH HIM LAYING ON THE BED WITH HIS GROIN EXPOSED AND NOT COVERED BY THE BLANKET PROVIDED. HE POINTED TO HIS GROIN TO THIGH SKIN FOLDS WHICH ARE REDDENED. IT APPEARED THAT THE REDDENED AREA IS FROM HIS GROIN AND THIGH SKIN RUBBING ON EACH OTHER. I ADVISED HIM TO KEEP HIS SKIN CLEAN AND DRY AND TO PUT GUAZE OR A THIN MATERIAL IN HIS FOLDS TO PREVENT THE SKIN FROM RUBBING ON EACH OTHER AND TO CHANGE IT FREQUENTLY TO PREVENT MOISTURE BUILD UP
--- NOTE | 2018-11-12 20:22 | NUR ---
PATIENT IS ASKING TO BE ADMITTED TO THE HOSPITAL. HE STATED THAT "MY SAYS THAT I SHOULD NOT LEAVE THE ER" UNLESS I KNOW WHAT IS WRONG WITH ME. PATIENT WAS INFORMED THAT IT IS POSSIBLE THAT HE HAS A VIRAL ILLNESS AND THAT A VALID MEDICAL CONDITION IS NEEDED TO BE ADMITTED TO THE HOSPITAL. PATIENT REMINDED AGAIN THAT HE HAD A FULL WORKUP THIS MORNING INCLUDING A FLU SWAB, BLOOD CULTURES, CXR AND LABS. PATIENT IS TAKING CIPRO: PRESCRIBED BY PROVIDER LAST NIGHT WHO DID NOT PHYSICALLY EVALUATE HIM. THE PATIENT WAS TOLD EARLIER BY VIKY RONQUILLO THAT WE ARE ABLE TO TELL HIM WHAT HE DOES NOT HAVE.
--- NOTE | 2018-11-12 20:33 | NUR ---
PATIENT WAS LEAVING THE ER WHEN I ASKED HIM IF HE WOULD LIKE HIS DISCHARGE PAPERWORK. PATIENT STATED THAT "I DO NOT NEED THAT". I ASKED HIM IF HE WOULD PLEASE SIGN HIS DISCHARGE PAPERWORK AND ALLOW ME TO GO OVER HIS DISCHARGE INSTRUCTIONS AGAIN. HE REFUSED TO LET ME RECHECK HIS TEMPERATURE. I WENT OVER HIS DISCHARGE PAPERWORK WITH HIM. VIKY RONQUILLO PREVIOUSLY WENT OVER HIS DISCHARGE INSTRUCTIONS. PATIENT VERBALIZED SIMPLE UNDERSTANDING OF DISCHARGE PLAN. PATIENT WILL TAKE IBUPROFEN AND TYLENOL ALTERATING FOR A FEVER AND FOR CHILLS. PATIENT WILL STAY WELL HYDRATED WITH WATER, GATORADE, AND NON CAFEINATED TEA. PATIENT WILL RETURN TO THE ER IF HE HAS A FEVER OVER 102 THAT IS NOT RESPONDING TO TYLENOL AND IBUPROFEN. PATIENT WILL FOLLOW UP WITH [facility] IN 3-5 DAYS. PATIENT AMBULATED OUT OF ER WNL. PATIENT CAME INTO THE ER IN A HOSPITAL .
[2018-11-13] MEDS ORDERED: FLO0.4C PO (18:38)
[2018-11-13] MEDS ORDERED: ACET-2119 PO (18:38)
== END 2018-11-12 21:21 | disposition home or self-care (01) ==
LOC: ER 15:50
DX: R50.9 Fever, unspecified (principal); E11.9 Type 2 diabetes mellitus without complications; Z90.49 Acquired absence of other specified parts of digestive tract; Z88.6 Allergy status to analgesic agent
CPT/HCPCS: 99282

== ENCOUNTER 2018-11-13 17:24 | Inpatient (IN) | payer OTHER ==
[~2018-11-13] VITALS: Ht 182.9 cm; Wt 151.4 kg
[2018-11-13] MEDS ORDERED: acetaminophen 325mg tablet PO STA (17:54)
[2018-11-13] MEDS ORDERED: CefTRIAXone 2gm/D5W 50ml 50 ML IV ONE (17:55)
[2018-11-13] MEDS ORDERED: normal saline 1000ML IV soln IV ONE (17:55)
[2018-11-13] MEDS ORDERED: FLO0.4C PO (18:38)
[2018-11-13] MEDS ORDERED: ACET-2119 PO (18:38)
[2018-11-13 18:39] LABS: BASOPHILS % (AUTO) 0.3 % (0-1); EOSINOPHILS % (AUTO) 0.2 % (0-6); HEMATOCRIT 37.1 % (42.0-52.0); HEMOGLOBIN 12.8 g/dl (14.0-17.9); LYMPHOCYTES # (AUTO) 0.6 X10'3 (1.1-4.8); LYMPHOCYTES % (AUTO) 6.2 % (21-51); MEAN CORPUSCULAR HEMOGLOBIN 29.4 PG (27.0-31.0); MEAN CORPUSCULAR HGB CONC 34.5 g/dL (33.0-36.5); MEAN CORPUSCULAR VOLUME 85.3 FL (78-98); MEAN PLATELET VOLUME 8.2 FL (7.4-10.4); MONOCYTES # (AUTO) 0.7 X10'3 (0-0.9); MONOCYTES % (AUTO) 7.6 % (2-12); NEUTROPHILS # (AUTO) 7.7 X10'3 (1.8-7.7); NEUTROPHILS % (AUTO) 85.7 % (42-75); PLATELET COUNT 167 X10'3 (140-440); RED BLOOD COUNT 4.35 X10'6 (4.70-6.10); RED CELL DISTRIBUTION WIDTH 14.9 % (11.5-14.5)
[2018-11-13 18:53] LABS: INR 1.2 INR; PARTIAL THROMBOPLASTIN TIME 33 SECONDS (22-32); PROTHROMBIN TIME 12.4 SECONDS (9.0-12.0)
[2018-11-13 18:59] LABS: ALANINE AMINOTRANSFERASE 19 U/L (12-78); ALBUMIN 2.9 G/DL (3.4-5.0); ALBUMIN/GLOBULIN RATIO 0.8 (1.1-1.5); ALKALINE PHOSPHATASE 75 IU/L (46-116); ANION GAP 6 (8-16); ASPARTATE AMINO TRANSFERASE 19 U/L (10-37); BILIRUBIN,TOTAL 0.9 MG/DL (0.1-1.0); BLOOD UREA NITROGEN 15 MG/DL (7-18); BUN/CREATININE RATIO 14.6 (5.4-32.0); CALCIUM 8.5 MG/DL (8.5-10.1); CHLORIDE 101 MMOL/L (99-107); CREATININE 1.03 MG/DL (0.60-1.10); GLUCOSE 130 MG/DL (70-104); MAGNESIUM 1.5 MG/DL (1.5-2.4); POTASSIUM 3.4 MMOL/L (3.5-5.1); SODIUM 134 MMOL/L (135-145); TOTAL CARBON DIOXIDE 27.4 MMOL/L (24-32); TOTAL PROTEIN 6.5 G/DL (6.4-8.2); eGFR 75 ML/MIN
[2018-11-13 19:17] LABS: CLARITY,URINE CLEAR (Clear); COLOR,URINE AMBER (Yellow); GLUCOSE, URINE NEGATIVE (Neg); KETONES,URINE NEGATIVE (Neg); LEUKOCYTE ESTERASE ,URINE NEGATIVE (Neg); NITRITES, URINE NEGATIVE (Neg); OCCULT BLOOD,URINE MODERATE (Neg); PH,URINE 5.5 (4.8-8.0); PROTEIN,URINE 30 mg/dl (Neg); UROBILINOGEN,URINE 0.2 E.U/dL (0.2-1.0)
[2018-11-13] MEDS ORDERED: LORazepam 2 mg/ml vial IV STA (19:18)
--- NOTE | 2018-11-13 19:18 | NUR ---
UNARMED SECURITY OFFICER OCTAVIO INFORMED ME THAT PT REFUSED CT UNLESS HES "KNOCKED OUT." PT STATED SAME TO ME, DESPITE EDUCATION THAT IMAGING IS OPEN AND ONLY A COUPLE OF MINUTES. VIKY RONQUILLO AWARE. ORDERS EXPECTED
[2018-11-13 19:21] LABS: UA COLLECTION TYPE CLN CATCH MIDSTREAM
[2018-11-13 19:26] LABS: BACTERIA,URINE NONE SEEN /HPF (Neg)
[2018-11-13 19:27] LABS: MUCUS STRANDS MANY /LPF (Neg); SQUAMOUS EPITHELIAL CELL,UR FEW /LPF (FEW)
[2018-11-13] MEDS ORDERED: potassium Cl 40MEQ/NS 500ml 500 ML IV PRN ×2 (21:15)
[2018-11-13] MEDS ORDERED: magnesium hydroxide 30ml (MOM) UD suspension PO PRN (21:15)
[2018-11-13] MEDS ORDERED: ondansetron/PF 4mg/2ml inj IV PRN (21:15)
[2018-11-13] MEDS ORDERED: acetaminophen 325mg tablet PO PRN ×2 (21:15)
[2018-11-13] MEDS ORDERED: mag hydrox/Alum hydrox/simeth 30ml oral suspension PO PRN (21:15)
[2018-11-13] MEDS ORDERED: potassium Cl 20 mEq SR tablet PO PRN (21:15)
--- NOTE | 2018-11-13 22:05 | NUR ---
ADMITTED A 57 Y.O. MALE FROM ER PER TANVIR TO ROOM 344 B.
[2018-11-13] MEDS: normal saline 1000ml 1,000 ML IV SCH (22:46)
[2018-11-14] MEDS: potassium Cl 20 mEq SR tablet PO PRN (00:19)
[2018-11-14 05:27] LABS: ALBUMIN 2.6 G/DL (3.4-5.0); ANION GAP 6 (8-16); BLOOD UREA NITROGEN 14 MG/DL (7-18); BUN/CREATININE RATIO 14.3 (5.4-32.0); CALCIUM 8.5 MG/DL (8.5-10.1); CHLORIDE 106 MMOL/L (99-107); CREATININE 0.98 MG/DL (0.60-1.10); GLUCOSE 107 MG/DL (70-104); POTASSIUM 3.5 MMOL/L (3.5-5.1); SODIUM 139 MMOL/L (135-145); TOTAL CARBON DIOXIDE 26.6 MMOL/L (24-32); eGFR 79 ML/MIN
[2018-11-14 05:59] LABS: BASOPHILS % (AUTO) 0.6 % (0-1); EOSINOPHILS # (AUTO) 0.1 X10'3 (0-0.9); EOSINOPHILS % (AUTO) 1.4 % (0-6); HEMOGLOBIN 12.3 g/dl (14.0-17.9); LYMPHOCYTES # (AUTO) 0.8 X10'3 (1.1-4.8); MEAN CORPUSCULAR HEMOGLOBIN 29.9 PG (27.0-31.0); MEAN CORPUSCULAR HGB CONC 35.2 g/dL (33.0-36.5); MEAN PLATELET VOLUME 8.5 FL (7.4-10.4); MONOCYTES # (AUTO) 0.8 X10'3 (0-0.9); MONOCYTES % (AUTO) 10.8 % (2-12); NEUTROPHILS # (AUTO) 5.9 X10'3 (1.8-7.7); NEUTROPHILS % (AUTO) 77.2 % (42-75); PLATELET COUNT 158 X10'3 (140-440); RED BLOOD COUNT 4.11 X10'6 (4.70-6.10); RED CELL DISTRIBUTION WIDTH 14.7 % (11.5-14.5); WHITE BLOOD COUNT 7.6 X10'3 (4.5-11.0)
--- NOTE | 2018-11-14 06:29 | NUR ---
Problems reprioritized. Patient report given, questions answered & plan of care reviewed with GUERO ALONZO.
--- NOTE | 2018-11-14 06:32 | NUR ---
Patient in room [facility]. I have received report from CHERI Craven and had the opportunity to ask questions and assume patient care. Patient resting comfortably at this time. Call light and items of frequent use in reach of patient.
[2018-11-14 07:12] VITALS: BP 135/78
[2018-11-14] MEDS: K and/or MAG REPLACEMENT MC SCH (08:00)
[2018-11-14] MEDS: CefTRIAXone/D5W-Rocephin 1gm 50 ML IV SCH (08:21)
[2018-11-14] MEDS: normal saline 1000ml 1,000 ML IV SCH ×2 (08:22→17:39)
[2018-11-14 11:54] VITALS: BP 140/68
--- NOTE | 2018-11-14 18:22 | NUR ---
Patient in room [facility]. I have received report from Pauline ALONZO and had the opportunity to ask questions and assume patient care.
--- NOTE | 2018-11-14 18:31 | NUR ---
Problems reprioritized. Patient report given, questions answered & plan of care reviewed with CHERI Ramos. Patient comfortable at this time and in no apparent distress on room air. Call light and items of frequent use in reach of patient.
[2018-11-14 19:00] VITALS: BP 148/75
[2018-11-14] MEDS: lactobacillus rhamnosus 10,000 MMU CELLS/CAPSULE PO SCH (20:14)
[2018-11-14] MEDS: HYDROcodone/acetaminophen 5mg/325mg tablet PO PRN (23:31)
[2018-11-15] VITALS: BP 145/78
[2018-11-15] MEDS: normal saline 1000ml 1,000 ML IV SCH ×3 (03:14→17:01)
[2018-11-15 05:19] LABS: ALBUMIN 2.4 G/DL (3.4-5.0); ANION GAP 7 (8-16); BLOOD UREA NITROGEN 12 MG/DL (7-18); BUN/CREATININE RATIO 13.3 (5.4-32.0); CALCIUM 8.4 MG/DL (8.5-10.1); CHLORIDE 103 MMOL/L (99-107); GLUCOSE 107 MG/DL (70-104); POTASSIUM 3.4 MMOL/L (3.5-5.1); SODIUM 136 MMOL/L (135-145); TOTAL CARBON DIOXIDE 26.4 MMOL/L (24-32); eGFR 87 ML/MIN
[2018-11-15 05:25] LABS: BASOPHILS % (AUTO) 0.4 % (0-1); EOSINOPHILS # (AUTO) 0.2 X10'3 (0-0.9); HEMATOCRIT 31.7 % (42.0-52.0); HEMOGLOBIN 10.8 g/dl (14.0-17.9); LYMPHOCYTES # (AUTO) 1.6 X10'3 (1.1-4.8); LYMPHOCYTES % (AUTO) 21.4 % (21-51); MEAN CORPUSCULAR HEMOGLOBIN 29.1 PG (27.0-31.0); MEAN CORPUSCULAR HGB CONC 34.1 g/dL (33.0-36.5); MEAN CORPUSCULAR VOLUME 85.4 FL (78-98); MEAN PLATELET VOLUME 8.6 FL (7.4-10.4); MONOCYTES % (AUTO) 12.7 % (2-12); NEUTROPHILS # (AUTO) 4.8 X10'3 (1.8-7.7); NEUTROPHILS % (AUTO) 63.5 % (42-75); PLATELET COUNT 146 X10'3 (140-440); RED BLOOD COUNT 3.71 X10'6 (4.70-6.10); RED CELL DISTRIBUTION WIDTH 14.6 % (11.5-14.5); WHITE BLOOD COUNT 7.6 X10'3 (4.5-11.0)
[2018-11-15] MEDS: HYDROcodone/acetaminophen 5mg/325mg tablet PO PRN (05:33)
[2018-11-15 06:00] VITALS: BP 153/78
--- NOTE | 2018-11-15 06:10 | NUR ---
Patient in room [facility]. I have received report from CHERI Ramos and had the opportunity to ask questions and assume patient care.
--- NOTE | 2018-11-15 06:52 | NUR ---
Problems reprioritized. Patient report given, questions answered & plan of care reviewed with Laury Rn.
[2018-11-15] MEDS: K and/or MAG REPLACEMENT MC SCH (07:03)
[2018-11-15] MEDS: potassium Cl 20 mEq SR tablet PO PRN ×3 (10:01→17:40)
[2018-11-15] MEDS: lactobacillus rhamnosus 10,000 MMU CELLS/CAPSULE PO SCH ×2 (10:01→21:17)
[2018-11-15] MEDS: CefTRIAXone/D5W-Rocephin 1gm 50 ML IV SCH (10:02)
[2018-11-15 11:00] VITALS: BP 139/88
[2018-11-15] MEDS: ciprofloxacin 250mg tablet PO SCH ×2 (12:28→21:16)
[2018-11-15] MEDS ORDERED: iohexol 300mg/ml 100ml inj. ONE (15:40)
[2018-11-15] MEDS: LORazepam 2 mg/ml vial IV ONE ×2 (16:04→16:07)
--- NOTE | 2018-11-15 16:07 | NUR ---
Pt off the floor to CT scan
--- NOTE | 2018-11-15 18:10 | NUR ---
Problems reprioritized. Patient report given, questions answered & plan of care reviewed with CHERI Ramos.
--- NOTE | 2018-11-15 18:30 | NUR ---
Patient in room [facility]. I have received report from Laury ALONZO and had the opportunity to ask questions and assume patient care.
[2018-11-15 19:00] VITALS: BP 171/69
[2018-11-16] VITALS: BP 168/74
--- NOTE | 2018-11-16 01:07 | NUR ---
Patient standing in hallway. When asked what patient needed, patient stated that he awoke and felt all sweaty and would like a new gown and linen change. Took patients temp which revealed 102.3. 2 x tylenol given and will recheck in an hour.
[2018-11-16] MEDS: normal saline 1000ml 1,000 ML IV SCH ×2 (02:01→13:24)
[2018-11-16 03:15] VITALS: BP 133/74
[2018-11-16 05:47] LABS: ALBUMIN 2.5 G/DL (3.4-5.0); ANION GAP 9 (8-16); BLOOD UREA NITROGEN 14 MG/DL (7-18); BUN/CREATININE RATIO 16.7 (5.4-32.0); CALCIUM 8.9 MG/DL (8.5-10.1); CHLORIDE 105 MMOL/L (99-107); CREATININE 0.84 MG/DL (0.60-1.10); GLUCOSE 104 MG/DL (70-104); POTASSIUM 3.7 MMOL/L (3.5-5.1); SODIUM 140 MMOL/L (135-145); TOTAL CARBON DIOXIDE 26.5 MMOL/L (24-32); eGFR > 90 ML/MIN
--- NOTE | 2018-11-16 06:05 | NUR ---
Patient in room [facility]. I have received report from SALLIE luque and had the opportunity to ask questions and assume patient care. PATIENT IN BED SLEEPING, BED LOW LOCKED CALL LIGHT IN REACH
--- NOTE | 2018-11-16 06:48 | NUR ---
Problems reprioritized. Patient report given, questions answered & plan of care reviewed with Ju ALONZO.Bed is low/locked,rails x2 up, sleeping peacefully.
[2018-11-16 07:05] VITALS: BP 136/72
[2018-11-16 07:23] LABS: BASOPHILS % (AUTO) 0.5 % (0-1); EOSINOPHILS # (AUTO) 0.2 X10'3 (0-0.9); EOSINOPHILS % (AUTO) 3.2 % (0-6); HEMATOCRIT 34.5 % (42.0-52.0); HEMOGLOBIN 11.8 g/dl (14.0-17.9); LYMPHOCYTES # (AUTO) 1.2 X10'3 (1.1-4.8); MEAN CORPUSCULAR HEMOGLOBIN 29.1 PG (27.0-31.0); MEAN CORPUSCULAR HGB CONC 34.2 g/dL (33.0-36.5); MEAN CORPUSCULAR VOLUME 85.1 FL (78-98); MEAN PLATELET VOLUME 8.3 FL (7.4-10.4); MONOCYTES # (AUTO) 0.5 X10'3 (0-0.9); MONOCYTES % (AUTO) 8.3 % (2-12); NEUTROPHILS # (AUTO) 4.6 X10'3 (1.8-7.7); PLATELET COUNT 166 X10'3 (140-440); RED BLOOD COUNT 4.06 X10'6 (4.70-6.10); RED CELL DISTRIBUTION WIDTH 14.6 % (11.5-14.5); WHITE BLOOD COUNT 6.6 X10'3 (4.5-11.0)
[2018-11-16] MEDS: lactobacillus rhamnosus 10,000 MMU CELLS/CAPSULE PO SCH ×2 (07:36→19:47)
[2018-11-16] MEDS: ciprofloxacin 250mg tablet PO SCH ×2 (07:36→19:47)
[2018-11-16] MEDS: K and/or MAG REPLACEMENT MC SCH (07:38)
[2018-11-16 11:43] VITALS: BP 128/70
[2018-11-16] MEDS: enoxaparin 40mg/0.4ml syringe SUBCUT SCH (16:00)
--- NOTE | 2018-11-16 18:05 | NUR ---
Patient in room [facility]. I have received report from Ju ALONZO and had the opportunity to ask questions and assume patient care. Patient up walking, arrived to visit during shift change, will continue to monitor.
--- NOTE | 2018-11-16 18:05 | NUR ---
Problems reprioritized. Patient report given, JEANETTE ALONZO questions answered & plan of care reviewed with . PATIENT UP WALKING THE [place] AT BEDSIDE.
[2018-11-16 19:50] VITALS: BP 122/71
[2018-11-16 23:42] VITALS: BP 147/77
[2018-11-17] MEDS: potassium Cl 20mEq in NS 1,000 ML IV SCH ×2 (00:45→11:32)
[2018-11-17 04:53] LABS: BASOPHILS # (AUTO) 0.1 X10'3 (0-0.2); BASOPHILS % (AUTO) 1.6 % (0-1); EOSINOPHILS # (AUTO) 0.4 X10'3 (0-0.9); EOSINOPHILS % (AUTO) 4.5 % (0-6); HEMATOCRIT 32.1 % (42.0-52.0); HEMOGLOBIN 10.8 g/dl (14.0-17.9); LYMPHOCYTES # (AUTO) 1.5 X10'3 (1.1-4.8); LYMPHOCYTES % (AUTO) 19.6 % (21-51); MEAN CORPUSCULAR HEMOGLOBIN 28.6 PG (27.0-31.0); MEAN CORPUSCULAR HGB CONC 33.8 g/dL (33.0-36.5); MEAN CORPUSCULAR VOLUME 84.6 FL (78-98); MEAN PLATELET VOLUME 8.5 FL (7.4-10.4); MONOCYTES # (AUTO) 0.6 X10'3 (0-0.9); NEUTROPHILS # (AUTO) 5.3 X10'3 (1.8-7.7); NEUTROPHILS % (AUTO) 67.3 % (42-75); PLATELET COUNT 181 X10'3 (140-440); RED BLOOD COUNT 3.79 X10'6 (4.70-6.10); RED CELL DISTRIBUTION WIDTH 14.6 % (11.5-14.5); WHITE BLOOD COUNT 7.9 X10'3 (4.5-11.0)
[2018-11-17 04:54] LABS: ALBUMIN 2.4 G/DL (3.4-5.0); ANION GAP 9 (8-16); BLOOD UREA NITROGEN 12 MG/DL (7-18); BUN/CREATININE RATIO 15.4 (5.4-32.0); CALCIUM 8.8 MG/DL (8.5-10.1); CHLORIDE 104 MMOL/L (99-107); CREATININE 0.78 MG/DL (0.60-1.10); GLUCOSE 115 MG/DL (70-104); POTASSIUM 3.9 MMOL/L (3.5-5.1); SODIUM 139 MMOL/L (135-145); eGFR > 90 ML/MIN
--- NOTE | 2018-11-17 06:43 | NUR ---
Problems reprioritized. Patient report given, questions answered & plan of care reviewed with Rolanda RN. Patient sitting in bed, resting and introduced to oncoming RN.
[2018-11-17 07:30] VITALS: BP 157/88
[2018-11-17] MEDS: lactobacillus rhamnosus 10,000 MMU CELLS/CAPSULE PO SCH (08:00)
[2018-11-17] MEDS: ciprofloxacin 250mg tablet PO SCH (08:00)
[2018-11-17] MEDS: K and/or MAG REPLACEMENT MC SCH (08:00)
[2018-11-17] MEDS: enoxaparin 40mg/0.4ml syringe SUBCUT SCH (08:00)
[2018-11-17] MEDS ORDERED: CIPR250T4 PO (11:12)
[2018-11-17] MEDS ORDERED: CIPR-230 PO (11:25)
[2018-11-17 12:00] VITALS: BP 148/86
--- NOTE | 2018-11-17 14:50 | NUR ---
Patient discharged home with . Stable and appropriate. All belongings taken from room. IV removed. Discharge pictures taken. Discharge instructions reviewed. Prescription called into preferred pharmacy.
== END 2018-11-17 14:50 | disposition home or self-care (01) | DRG 872 ==
LOC: ER 17:24 → ED HOLD 21:14 → SUR 3N 22:08
PROVIDERS: ADMIT Hospitalist; ATTEND Internal Medicine
DX: A41.52 Sepsis due to Pseudomonas (principal); E87.1 Hypo-osmolality and hyponatremia; N39.0 Urinary tract infection, site not specified; Z68.42 Body mass index [BMI] 45.0-49.9, adult; E11.9 Type 2 diabetes mellitus without complications; E87.6 Hypokalemia; G47.30 Sleep apnea, unspecified; I10 Essential (primary) hypertension; K21.9 Gastro-esophageal reflux disease without esophagitis; N28.89 Other specified disorders of kidney and ureter; E66.9 Obesity, unspecified; N40.1 Benign prostatic hyperplasia with lower urinary tract symptoms; R33.8 Other retention of urine; Z82.5 Family history of asthma and other chronic lower respiratory diseases; Z87.442 Personal history of urinary calculi; Z88.6 Allergy status to analgesic agent; Z80.0 Family history of malignant neoplasm of digestive organs; Z82.3 Family history of stroke; Z79.899 Other long term (current) drug therapy; Z90.49 Acquired absence of other specified parts of digestive tract
CPT/HCPCS: 36415; 71045; 74170; 74176; 76775; 80048; 80053; 81001; 83605; 83735; 84145; 85025; 85610; 85730; 87040; 87070; 87088; 93005; 96365; 96375; 99285; G0378; J0696; J1650; J2060; J7030; Q9967

== ENCOUNTER 2018-12-01 15:14 | Outpatient (CLI) | payer OTHER ==
[~2018-12-01 15:14] MED LIST changes: +ACET-2119 PO; -AMLO5TAB4 PO; -CALCIUM PO; -COQ PO; +FLO0.4C PO; -MULTIVITAMIN PO; -ONDA4TAB6 PO; -PER5325T PO; -VITAMIN B COMPLEX
== END 2018-12-01 23:59 | disposition home or self-care (01) ==
LOC: RAD 15:14
PROVIDERS: ATTEND Family Medicine
DX: R06.02 Shortness of breath (principal)
CPT/HCPCS: 71046

== ENCOUNTER 2018-12-02 11:03 | Outpatient (CLI) | payer OTHER | END 2018-12-02 23:59 | disposition home or self-care (01) | LOC: RAD 11:03 | PROVIDERS: ATTEND Surgery | DX: N28.1 Cyst of kidney, acquired (principal); N20.0 Calculus of kidney | CPT/HCPCS: 76700 ==

== ENCOUNTER 2018-12-30 09:01 | Outpatient (CLI) | payer OTHER ==
[2018-12-30 11:29] LABS: BASOPHILS # (AUTO) 0.1 X10'3 (0-0.2); BASOPHILS % (AUTO) 1.4 % (0-1); EOSINOPHILS # (AUTO) 0.3 X10'3 (0-0.9); EOSINOPHILS % (AUTO) 5.7 % (0-6); HEMATOCRIT 39.6 % (42.0-52.0); HEMOGLOBIN 13.3 g/dl (14.0-17.9); LYMPHOCYTES # (AUTO) 1.4 X10'3 (1.1-4.8); LYMPHOCYTES % (AUTO) 26.2 % (21-51); MEAN CORPUSCULAR HEMOGLOBIN 28.8 PG (27.0-31.0); MEAN CORPUSCULAR HGB CONC 33.5 g/dL (33.0-36.5); MEAN CORPUSCULAR VOLUME 85.9 FL (78-98); MEAN PLATELET VOLUME 8.5 FL (7.4-10.4); MONOCYTES # (AUTO) 0.4 X10'3 (0-0.9); MONOCYTES % (AUTO) 7.3 % (2-12); NEUTROPHILS # (AUTO) 3.2 X10'3 (1.8-7.7); NEUTROPHILS % (AUTO) 59.4 % (42-75); PLATELET COUNT 192 X10'3 (140-440); RED BLOOD COUNT 4.61 X10'6 (4.70-6.10); RED CELL DISTRIBUTION WIDTH 15.7 % (11.5-14.5); WHITE BLOOD COUNT 5.4 X10'3 (4.5-11.0)
[2018-12-30 11:50] LABS: CLARITY,URINE CLEAR (Clear); COLOR,URINE YELLOW (Yellow); GLUCOSE, URINE NEGATIVE (Neg); KETONES,URINE NEGATIVE (Neg); LEUKOCYTE ESTERASE ,URINE TRACE (Neg); NITRITES, URINE NEGATIVE (Neg); OCCULT BLOOD,URINE NEGATIVE (Neg); PH,URINE 5.5 (4.8-8.0); PROTEIN,URINE NEGATIVE (Neg); UA COLLECTION TYPE CLN CATCH MIDSTREAM; UROBILINOGEN,URINE 0.2 E.U/dL (0.2-1.0)
[2018-12-30 11:51] LABS: ALANINE AMINOTRANSFERASE 18 U/L (12-78); ALBUMIN 3.6 G/DL (3.4-5.0); ALBUMIN/GLOBULIN RATIO 1.2 (1.1-1.5); ALKALINE PHOSPHATASE 100 IU/L (46-116); ANION GAP 5 (8-16); ASPARTATE AMINO TRANSFERASE 16 U/L (10-37); BILIRUBIN,TOTAL 0.7 MG/DL (0.1-1.0); BLOOD UREA NITROGEN 20 MG/DL (7-18); BUN/CREATININE RATIO 21.5 (5.4-32.0); CALCIUM 9.3 MG/DL (8.5-10.1); CHLORIDE 108 MMOL/L (99-107); CHOLESTEROL 160 MG/DL (0-200); CREATININE 0.93 MG/DL (0.60-1.10); GLUCOSE 109 MG/DL (70-104); HDL CHOLESTEROL 40 MG/DL (35-60); LDL CHOLESTEROL 110 MG/DL (50-100); POTASSIUM 3.9 MMOL/L (3.5-5.1); SODIUM 142 MMOL/L (135-145); TOTAL CARBON DIOXIDE 28.9 MMOL/L (24-32); TOTAL PROTEIN 6.7 G/DL (6.4-8.2); TRIGLYCERIDES 44 MG/DL (20-135); eGFR 84 ML/MIN
[2018-12-30 11:58] LABS: SQUAMOUS EPITHELIAL CELL,UR NONE SEEN /LPF (FEW); TRANSITIONAL EPI CELLS,URINE FEW /HPF
[2018-12-30 11:59] LABS: BACTERIA,URINE FEW /HPF (Neg); MUCUS STRANDS FEW /LPF (Neg); RBC,URINE 0-2 /HPF (0-2)
[2018-12-31 09:28] LABS: PSA, ULTRASENSITIVE W/O SERIAL 0.313 ng/mL (0.000-4.000)
== END 2018-12-30 23:59 | disposition home or self-care (01) ==
LOC: LAB 09:01
PROVIDERS: ATTEND Family Medicine
DX: Z00.00 Encounter for general adult medical examination without abnormal findings (principal)
CPT/HCPCS: 36415; 80053; 80061; 81001; 84153; 84402; 84403; 84439; 84443; 85025

== ENCOUNTER 2019-04-11 10:24 | Outpatient (CLI) | payer OTHER | END 2019-04-11 23:59 | disposition home or self-care (01) | LOC: RAD 10:24 | PROVIDERS: ATTEND Family Medicine | DX: S83.8X2A Sprain of other specified parts of left knee, initial encounter (principal); S83.252A Bucket-handle tear of lateral meniscus, current injury, left knee, initial encounter; M71.22 Synovial cyst of popliteal space [Baker], left knee; M22.42 Chondromalacia patellae, left knee; M25.762 Osteophyte, left knee; M25.462 Effusion, left knee; X58.XXXA Exposure to other specified factors, initial encounter; Y93.89 Activity, other specified; Y92.89 Other specified places as the place of occurrence of the external cause; Y99.8 Other external cause status | CPT/HCPCS: 73721 ==

== ENCOUNTER 2019-05-17 13:18 | Outpatient (CLI) | payer OTHER ==
[2019-05-17 14:42] LABS: BASOPHILS # (AUTO) 0.1 X10'3 (0-0.2); BASOPHILS % (AUTO) 0.9 % (0-1); EOSINOPHILS # (AUTO) 0.3 X10'3 (0-0.9); EOSINOPHILS % (AUTO) 4.9 % (0-6); HEMATOCRIT 41.5 % (42.0-52.0); HEMOGLOBIN 13.7 g/dl (14.0-17.9); LYMPHOCYTES # (AUTO) 1.6 X10'3 (1.1-4.8); LYMPHOCYTES % (AUTO) 25.3 % (21-51); MEAN CORPUSCULAR HEMOGLOBIN 28.7 PG (27.0-31.0); MEAN CORPUSCULAR HGB CONC 32.9 g/dL (33.0-36.5); MEAN CORPUSCULAR VOLUME 87.1 FL (78-98); MEAN PLATELET VOLUME 8.1 FL (7.4-10.4); MONOCYTES # (AUTO) 0.5 X10'3 (0-0.9); MONOCYTES % (AUTO) 7.4 % (2-12); NEUTROPHILS % (AUTO) 61.5 % (42-75); PLATELET COUNT 175 X10'3 (140-440); RED BLOOD COUNT 4.76 X10'6 (4.70-6.10); WHITE BLOOD COUNT 6.4 X10'3 (4.5-11.0)
[2019-05-17 14:46] LABS: CLARITY,URINE CLOUDY (Clear); COLOR,URINE YELLOW (Yellow); GLUCOSE, URINE NEGATIVE (Neg); KETONES,URINE NEGATIVE (Neg); LEUKOCYTE ESTERASE ,URINE NEGATIVE (Neg); NITRITES, URINE NEGATIVE (Neg); OCCULT BLOOD,URINE NEGATIVE (Neg); PH,URINE 5.5 (4.8-8.0); PROTEIN,URINE NEGATIVE (Neg); UROBILINOGEN,URINE 0.2 E.U/dL (0.2-1.0)
[2019-05-17 14:55] LABS: UA COLLECTION TYPE CLN CATCH MIDSTREAM
[2019-05-17 15:00] LABS: HYALINE CASTS 0-3 /LPF (NEGATIVE); MUCUS STRANDS MODERATE /LPF (Neg); RBC,URINE 0-2 /HPF (0-2); SQUAMOUS EPITHELIAL CELL,UR FEW /LPF (FEW)
[2019-05-17 15:02] LABS: BACTERIA,URINE FEW /HPF (Neg)
[2019-05-17 15:06] LABS: ALANINE AMINOTRANSFERASE 23 U/L (12-78); ALBUMIN 3.5 G/DL (3.4-5.0); ALBUMIN/GLOBULIN RATIO 1.1 (1.1-1.5); ALKALINE PHOSPHATASE 102 IU/L (46-116); ANION GAP 10 (8-16); ASPARTATE AMINO TRANSFERASE 19 U/L (10-37); BILIRUBIN,TOTAL 0.9 MG/DL (0.1-1.0); BLOOD UREA NITROGEN 16 MG/DL (7-18); BUN/CREATININE RATIO 16.3 (5.4-32.0); CALCIUM 8.9 MG/DL (8.5-10.1); CHLORIDE 110 MMOL/L (99-107); CHOL/HDL RATIO 4.4 (0.00-4.99); CHOLESTEROL 184 MG/DL (0-200); CREATININE 0.98 MG/DL (0.60-1.10); GLUCOSE 98 MG/DL (70-104); HDL CHOLESTEROL 42 MG/DL (35-60); LDL CHOLESTEROL 128 MG/DL (50-100); POTASSIUM 3.6 MMOL/L (3.5-5.1); SODIUM 148 MMOL/L (135-145); TOTAL CARBON DIOXIDE 28.4 MMOL/L (24-32); TOTAL PROTEIN 6.7 G/DL (6.4-8.2); TRIGLYCERIDES 45 MG/DL (20-135); eGFR 79 ML/MIN
[2019-05-19 06:13] LABS: PSA, ULTRASENSITIVE W/O SERIAL 0.417 ng/mL (0.000-4.000)
== END 2019-05-17 23:59 | disposition home or self-care (01) ==
LOC: LAB 13:18
PROVIDERS: ATTEND Family Medicine
DX: Z00.00 Encounter for general adult medical examination without abnormal findings (principal)
CPT/HCPCS: 36415; 80053; 80061; 81001; 84153; 84402; 84403; 84439; 84443; 85025

== ENCOUNTER 2019-05-20 08:39 | Outpatient (CLI) | payer OTHER | END 2019-05-20 23:59 | disposition home or self-care (01) | LOC: RAD 08:39 | PROVIDERS: ATTEND Family Medicine | DX: S83.281A Other tear of lateral meniscus, current injury, right knee, initial encounter (principal); S83.411D Sprain of medial collateral ligament of right knee, subsequent encounter; M71.21 Synovial cyst of popliteal space [Baker], right knee; I83.91 Asymptomatic varicose veins of right lower extremity; X58.XXXA Exposure to other specified factors, initial encounter; Z72.89 Other problems related to lifestyle; Y93.89 Activity, other specified; Y92.89 Other specified places as the place of occurrence of the external cause; Y99.8 Other external cause status | CPT/HCPCS: 73721 ==

== ENCOUNTER 2019-05-27 08:47 | Outpatient (CLI) | payer OTHER | END 2019-05-27 23:59 | disposition home or self-care (01) | LOC: RAD 08:47 | PROVIDERS: ATTEND Family Medicine | DX: N20.0 Calculus of kidney (principal) | CPT/HCPCS: 76775 ==

== ENCOUNTER 2019-06-22 10:11 | Outpatient (CLI) | payer OTHER ==
[~2019-06-22 10:11] MED LIST changes: +iohexol 300mg/ml 100ml inj. ONE
== END 2019-06-22 23:59 | disposition home or self-care (01) ==
LOC: 64 CT 10:11
PROVIDERS: ATTEND Urology
DX: K57.90 Diverticulosis of intestine, part unspecified, without perforation or abscess without bleeding (principal); N20.0 Calculus of kidney; N28.1 Cyst of kidney, acquired
CPT/HCPCS: 74177; Q9967

== ENCOUNTER 2019-06-24 08:02 | Outpatient (CLI) | payer OTHER ==
[~2019-06-24 08:02] MED LIST changes: -iohexol 300mg/ml 100ml inj. ONE
== END 2019-06-24 23:59 | disposition home or self-care (01) ==
LOC: LAB 08:02
PROVIDERS: ATTEND Family Medicine
DX: N20.0 Calculus of kidney (principal)
CPT/HCPCS: 84550

== ENCOUNTER 2019-06-29 08:45 | Outpatient (CLI) | payer OTHER ==
[2019-06-29 09:43] LABS: ALBUMIN 3.7 G/DL (3.4-5.0); ANION GAP 4 (8-16); BLOOD UREA NITROGEN 19 MG/DL (7-18); BUN/CREATININE RATIO 20.2 (5.4-32.0); CALCIUM 9.5 MG/DL (8.5-10.1); CHLORIDE 109 MMOL/L (99-107); CREATININE 0.94 MG/DL (0.60-1.10); GLUCOSE 100 MG/DL (70-104); POTASSIUM 4.5 MMOL/L (3.5-5.1); SODIUM 145 MMOL/L (135-145); TOTAL CARBON DIOXIDE 32.1 MMOL/L (24-32); eGFR 83 ML/MIN
== END 2019-06-29 23:59 | disposition home or self-care (01) ==
LOC: LAB 08:45
PROVIDERS: ATTEND Urology
DX: Z01.812 Encounter for preprocedural laboratory examination (principal)
CPT/HCPCS: 36415; 80048

== ENCOUNTER 2019-07-01 09:59 | Outpatient (CLI) | payer OTHER | END 2019-07-01 23:59 | disposition home or self-care (01) | LOC: RAD 09:59 | PROVIDERS: ATTEND Urology | DX: M16.0 Bilateral primary osteoarthritis of hip (principal) | CPT/HCPCS: 74018 ==

== ENCOUNTER 2019-07-15 13:45 | Outpatient (CLI) | payer OTHER | END 2019-07-15 23:59 | disposition home or self-care (01) | LOC: CARD DIAG 13:45 | PROVIDERS: ATTEND Urology | DX: Z01.810 Encounter for preprocedural cardiovascular examination (principal); N20.0 Calculus of kidney; R94.31 Abnormal electrocardiogram [ECG] [EKG] | CPT/HCPCS: 93005 ==

== ENCOUNTER → 2019-08-08 | Outpatient (CLI) | payer OTHER ==
[2019-08-08 16:49] LABS: BASOPHILS # (AUTO) 0.1 X10'3 (0-0.2); EOSINOPHILS # (AUTO) 0.4 X10'3 (0-0.9); EOSINOPHILS % (AUTO) 5.6 % (0-6); HEMATOCRIT 39.4 % (42.0-52.0); HEMOGLOBIN 13.6 g/dl (14.0-17.9); LYMPHOCYTES # (AUTO) 1.6 X10'3 (1.1-4.8); LYMPHOCYTES % (AUTO) 24.8 % (21-51); MEAN CORPUSCULAR HEMOGLOBIN 29.9 PG (27.0-31.0); MEAN CORPUSCULAR HGB CONC 34.6 g/dL (33.0-36.5); MEAN CORPUSCULAR VOLUME 86.4 FL (78-98); MEAN PLATELET VOLUME 8.6 FL (7.4-10.4); MONOCYTES # (AUTO) 0.4 X10'3 (0-0.9); MONOCYTES % (AUTO) 6.2 % (2-12); NEUTROPHILS # (AUTO) 3.9 X10'3 (1.8-7.7); NEUTROPHILS % (AUTO) 62.4 % (42-75); PLATELET COUNT 182 X10'3 (140-440); RED BLOOD COUNT 4.56 X10'6 (4.70-6.10); RED CELL DISTRIBUTION WIDTH 14.6 % (11.5-14.5); WHITE BLOOD COUNT 6.3 X10'3 (4.5-11.0)
[2019-08-08 16:57] LABS: ALBUMIN 3.4 G/DL (3.4-5.0); ANION GAP 6 (8-16); BLOOD UREA NITROGEN 21 MG/DL (7-18); BUN/CREATININE RATIO 22.6 (5.4-32.0); CHLORIDE 108 MMOL/L (99-107); CREATININE 0.93 MG/DL (0.60-1.10); GLUCOSE 108 MG/DL (70-104); POTASSIUM 3.6 MMOL/L (3.5-5.1); SODIUM 144 MMOL/L (135-145); TOTAL CARBON DIOXIDE 30.4 MMOL/L (24-32); eGFR 84 ML/MIN
== END | disposition home or self-care (01) ==
LOC: LAB 15:39
PROVIDERS: ATTEND Urology
DX: Z01.818 Encounter for other preprocedural examination (principal); N20.0 Calculus of kidney
CPT/HCPCS: 36415; 80048; 85025

== ENCOUNTER 2019-08-25 18:16 | Inpatient (IN) | payer OTHER ==
[~2019-08-25] VITALS: Ht 182.9 cm; Wt 120.0 kg
[2019-08-25 19:05] LABS: CLARITY,URINE SLIGHTLY CLOUDY (Clear); COLOR,URINE YELLOW (Yellow); GLUCOSE, URINE NEGATIVE (Neg); KETONES,URINE NEGATIVE (Neg); LEUKOCYTE ESTERASE ,URINE LARGE (Neg); NITRITES, URINE POSITIVE (Neg); OCCULT BLOOD,URINE LARGE (Neg); PROTEIN,URINE 100 mg/dl (Neg); UROBILINOGEN,URINE 0.2 E.U/dL (0.2-1.0)
[2019-08-25 19:07] LABS: UA COLLECTION TYPE VOIDED
[2019-08-25 19:15] LABS: BACTERIA,URINE FEW /HPF (Neg); MUCUS STRANDS NONE SEEN /LPF (Neg); SQUAMOUS EPITHELIAL CELL,UR NONE SEEN /LPF (FEW); WBC,URINE 20-30 /HPF (0-4)
[2019-08-25 19:28] LABS: BASOPHILS % (AUTO) 0.5 % (0-1); EOSINOPHILS # (AUTO) 0.1 X10'3 (0-0.9); EOSINOPHILS % (AUTO) 0.8 % (0-6); HEMATOCRIT 37.4 % (42.0-52.0); HEMOGLOBIN 12.7 g/dl (14.0-17.9); MEAN CORPUSCULAR HEMOGLOBIN 29.6 PG (27.0-31.0); MONOCYTES # (AUTO) 0.8 X10'3 (0-0.9); MONOCYTES % (AUTO) 9.4 % (2-12); NEUTROPHILS # (AUTO) 6.8 X10'3 (1.8-7.7); NEUTROPHILS % (AUTO) 78.3 % (42-75); PLATELET COUNT 140 X10'3 (140-440); RED CELL DISTRIBUTION WIDTH 14.5 % (11.5-14.5); WHITE BLOOD COUNT 8.7 X10'3 (4.5-11.0)
[2019-08-25 19:42] LABS: PARTIAL THROMBOPLASTIN TIME 29 SECONDS (22-32)
[2019-08-25] MEDS ORDERED: CefTRIAXone/D5W-Rocephin 1gm 50 ML IV ONE (19:50)
[2019-08-25 19:55] LABS: ALANINE AMINOTRANSFERASE 19 U/L (12-78); ALBUMIN 3.2 G/DL (3.4-5.0); ALKALINE PHOSPHATASE 86 IU/L (46-116); ANION GAP 9 (8-16); ASPARTATE AMINO TRANSFERASE 13 U/L (10-37); BILIRUBIN,TOTAL 1.2 MG/DL (0.1-1.0); BLOOD UREA NITROGEN 18 MG/DL (7-18); CALCIUM 8.2 MG/DL (8.5-10.1); CHLORIDE 102 MMOL/L (99-107); GLUCOSE 170 MG/DL (70-104); POTASSIUM 3.7 MMOL/L (3.5-5.1); SODIUM 137 MMOL/L (135-145); TOTAL PROTEIN 6.4 G/DL (6.4-8.2); eGFR 62 ML/MIN
[2019-08-25] MEDS ORDERED: CIPR-259 PO (20:46)
[2019-08-25] MEDS ORDERED: HYDR-3965 PO (20:46)
[2019-08-25] MEDS ORDERED: HYDROcodone/acetaminophen 5mg/325mg tablet PO PRN (21:00)
[2019-08-25] MEDS ORDERED: potassium CL 10mEq/100ml bag 100 ML IV PRN ×2 (21:05)
[2019-08-25] MEDS ORDERED: docusate sod 100mg capsule PO PRN (21:05)
[2019-08-25] MEDS ORDERED: acetaminophen 325mg tablet PO PRN (21:05)
[2019-08-25] MEDS ORDERED: ondansetron/PF 4mg/2ml inj IV PRN (21:05)
[2019-08-25] MEDS ORDERED: mag hydrox/Alum hydrox/simeth 30ml oral suspension PO PRN (21:05)
[2019-08-25] MEDS ORDERED: magnesium 4gm in 100ml NS 100 ML IV PRN (21:05)
[2019-08-25] MEDS ORDERED: potassium Cl 20 mEq SR tablet PO PRN (21:05)
[2019-08-25] MEDS ORDERED: magnesium 2GM in 50ml NS 50 ML IV PRN (21:05)
[2019-08-25] MEDS: normal saline 1000ml 1,000 ML IV SCH (21:34)
--- NOTE | 2019-08-25 22:35 | NUR ---
2149 I got report from CHERI Wall. 2209: Patient came to unit via wheelchair by RN . He is not in any apparent distress. 2 RN skin check done, assessment done, but patient refused his nasal swab.
--- NOTE | 2019-08-25 23:11 | NUR ---
Patient wears compression stockings because of lymphedema Addendum: 08/25/19 at 5213 by Kyree Dougherty RN Amended: Links added.
[2019-08-26] MEDS ORDERED: cefepime 2gm inj IV SCH
--- NOTE | 2019-08-26 00:51 | NUR ---
explained to patient that staff needed to see and strain his urine Addendum: 08/26/19 at 0055 by Kyree Dougherty RN Amended: Links added.
[2019-08-26 00:59] VITALS: BP 145/48
[2019-08-26] MEDS: CEFEPIME 2 GM in NS 100ml IV.SOLN 100 ML IV SCH ×3 (03:51→19:28)
[2019-08-26 05:03] LABS: BASOPHILS # (AUTO) 0.1 X10'3 (0-0.2); BASOPHILS % (AUTO) 0.9 % (0-1); EOSINOPHILS # (AUTO) 0.1 X10'3 (0-0.9); EOSINOPHILS % (AUTO) 1.3 % (0-6); HEMATOCRIT 35.6 % (42.0-52.0); HEMOGLOBIN 12.3 g/dl (14.0-17.9); LYMPHOCYTES # (AUTO) 1.4 X10'3 (1.1-4.8); LYMPHOCYTES % (AUTO) 16.5 % (21-51); MEAN CORPUSCULAR HEMOGLOBIN 29.8 PG (27.0-31.0); MEAN CORPUSCULAR HGB CONC 34.7 g/dL (33.0-36.5); MEAN CORPUSCULAR VOLUME 85.8 FL (78-98); MEAN PLATELET VOLUME 8.1 FL (7.4-10.4); MONOCYTES % (AUTO) 12.2 % (2-12); NEUTROPHILS # (AUTO) 5.7 X10'3 (1.8-7.7); NEUTROPHILS % (AUTO) 69.1 % (42-75); PLATELET COUNT 135 X10'3 (140-440); RED BLOOD COUNT 4.15 X10'6 (4.70-6.10); RED CELL DISTRIBUTION WIDTH 14.8 % (11.5-14.5); WHITE BLOOD COUNT 8.3 X10'3 (4.5-11.0)
[2019-08-26 05:25] LABS: ALANINE AMINOTRANSFERASE 20 U/L (12-78); ALKALINE PHOSPHATASE 81 IU/L (46-116); ANION GAP 7 (8-16); ASPARTATE AMINO TRANSFERASE 17 U/L (10-37); BILIRUBIN,TOTAL 1.1 MG/DL (0.1-1.0); BLOOD UREA NITROGEN 16 MG/DL (7-18); BUN/CREATININE RATIO 14.2 (5.4-32.0); CALCIUM 8.1 MG/DL (8.5-10.1); CHLORIDE 104 MMOL/L (99-107); CREATININE 1.13 MG/DL (0.60-1.10); GLUCOSE 112 MG/DL (70-104); MAGNESIUM 1.6 MG/DL (1.5-2.4); POTASSIUM 3.4 MMOL/L (3.5-5.1); SODIUM 138 MMOL/L (135-145); TOTAL CARBON DIOXIDE 27.4 MMOL/L (24-32); TOTAL PROTEIN 6.1 G/DL (6.4-8.2); eGFR 67 ML/MIN
--- NOTE | 2019-08-26 05:47 | NUR ---
urine is zenaida in color Addendum: 08/26/19 at 0547 by Kyree Dougherty RN Amended: Links added.
--- NOTE | 2019-08-26 06:44 | NUR ---
Patient in room [facility]. I have received report from CHERI Adorno and had the opportunity to ask questions and assume patient care.
--- NOTE | 2019-08-26 06:46 | NUR ---
Problems reprioritized. Patient report given, questions answered & plan of care reviewed with Leydi Rowan RN.
[2019-08-26 07:00] VITALS: BP 139/74
[2019-08-26] MEDS: potassium Cl 20 mEq SR tablet PO PRN ×3 (07:33→19:29)
[2019-08-26] MEDS: phenazopyridine 100mg tablet PO SCH ×3 (07:34→19:29)
[2019-08-26] MEDS: enoxaparin 40mg/0.4ml syringe SQ SCH (07:37)
[2019-08-26] MEDS: normal saline 1000ml 1,000 ML IV SCH ×2 (07:43→17:44)
[2019-08-26] MEDS ORDERED: tamsulosin 0.4mg capsule PO SCH ×2 (08:00→21:00)
[2019-08-26] MEDS: K and/or MAG REPLACEMENT MC SCH ×2 (08:00→19:34)
[2019-08-26 11:00] VITALS: BP 144/82
[2019-08-26] MEDS: calcium carbonate 500mg chew tablet PO SCH (17:30)
[2019-08-26 18:00] VITALS: BP 152/64
--- NOTE | 2019-08-26 18:00 | NUR ---
Patient in room [facility]. I have received report from and had the opportunity to ask questions and assume patient care.
--- NOTE | 2019-08-26 18:00 | NUR ---
Patient in room [facility]. I have received report from Anum ALONZO and had the opportunity to ask questions and assume patient care.
--- NOTE | 2019-08-26 18:30 | NUR ---
Problems reprioritized. Patient report given, questions answered & plan of care reviewed with CHERI Mckeon.
[2019-08-26] MEDS: lactobacillus rhamnosus 10,000 MMU CELLS/CAPSULE PO SCH (19:28)
[2019-08-27 00:55] VITALS: BP 154/70
[2019-08-27] MEDS: CEFEPIME 2 GM in NS 100ml IV.SOLN 100 ML IV SCH (03:56)
[2019-08-27] MEDS: normal saline 1000ml 1,000 ML IV SCH (04:00)
[2019-08-27 05:21] LABS: BASOPHILS # (AUTO) 0.1 X10'3 (0-0.2); BASOPHILS % (AUTO) 0.9 % (0-1); EOSINOPHILS # (AUTO) 0.4 X10'3 (0-0.9); EOSINOPHILS % (AUTO) 5.3 % (0-6); HEMATOCRIT 33.9 % (42.0-52.0); HEMOGLOBIN 11.7 g/dl (14.0-17.9); LYMPHOCYTES # (AUTO) 1.3 X10'3 (1.1-4.8); MEAN CORPUSCULAR HEMOGLOBIN 29.9 PG (27.0-31.0); MEAN CORPUSCULAR HGB CONC 34.5 g/dL (33.0-36.5); MEAN CORPUSCULAR VOLUME 86.8 FL (78-98); MEAN PLATELET VOLUME 8.5 FL (7.4-10.4); MONOCYTES # (AUTO) 0.8 X10'3 (0-0.9); MONOCYTES % (AUTO) 11.6 % (2-12); NEUTROPHILS # (AUTO) 4.4 X10'3 (1.8-7.7); NEUTROPHILS % (AUTO) 63.2 % (42-75); PLATELET COUNT 130 X10'3 (140-440); RED BLOOD COUNT 3.91 X10'6 (4.70-6.10); RED CELL DISTRIBUTION WIDTH 15.1 % (11.5-14.5)
[2019-08-27 05:43] LABS: ALANINE AMINOTRANSFERASE 19 U/L (12-78); ALBUMIN 2.8 G/DL (3.4-5.0); ALBUMIN/GLOBULIN RATIO 0.9 (1.1-1.5); ALKALINE PHOSPHATASE 72 IU/L (46-116); ANION GAP 8 (8-16); ASPARTATE AMINO TRANSFERASE 17 U/L (10-37); BILIRUBIN,TOTAL 0.7 MG/DL (0.1-1.0); BLOOD UREA NITROGEN 17 MG/DL (7-18); BUN/CREATININE RATIO 18.9 (5.4-32.0); CALCIUM 8.2 MG/DL (8.5-10.1); CHLORIDE 108 MMOL/L (99-107); GLUCOSE 120 MG/DL (70-104); MAGNESIUM 1.7 MG/DL (1.5-2.4); POTASSIUM 3.7 MMOL/L (3.5-5.1); SODIUM 140 MMOL/L (135-145); TOTAL CARBON DIOXIDE 24.2 MMOL/L (24-32); eGFR 87 ML/MIN
--- NOTE | 2019-08-27 06:31 | NUR ---
Report given, patient resting with no apparent distress.
--- NOTE | 2019-08-27 06:32 | NUR ---
Patient in room [facility]. I have received report from Linda ALONZO and had the opportunity to ask questions and assume patient care.
[2019-08-27] MEDS: lactobacillus rhamnosus 10,000 MMU CELLS/CAPSULE PO SCH (08:00)
[2019-08-27] MEDS: K and/or MAG REPLACEMENT MC SCH (08:00)
[2019-08-27] MEDS: calcium carbonate 500mg chew tablet PO SCH (08:00)
[2019-08-27] MEDS: phenazopyridine 100mg tablet PO SCH (08:00)
[2019-08-27] MEDS: enoxaparin 40mg/0.4ml syringe SQ SCH (08:00)
[2019-08-27 09:27] VITALS: BP 162/81
[2019-08-27] MEDS ORDERED: DOCU100C40 PO (10:59)
[2019-08-27] MEDS ORDERED: PHEN-786 PO (10:59)
[2019-08-27] MEDS ORDERED: LACT1CAP26 PO (10:59)
--- NOTE | 2019-08-27 14:39 | NUR ---
Patient D/C'd home per Dr [place]. Pt alert and oriented, on stable conditions. Discharge and medication instructions given to patient. pt left this hospital via private vehicle accompanied by .
== END 2019-08-27 12:23 | disposition home or self-care (01) | DRG 872 ==
LOC: ER 18:17 → EEVIPCON 18:17 → ED HOLD 21:24 → SUR 3N 22:10
PROVIDERS: ADMIT Family Medicine; ATTEND Family Medicine
DX: A41.9 Sepsis, unspecified organism (principal); N39.0 Urinary tract infection, site not specified; E11.9 Type 2 diabetes mellitus without complications; E66.01 Morbid (severe) obesity due to excess calories; G47.30 Sleep apnea, unspecified; K76.9 Liver disease, unspecified; N20.0 Calculus of kidney; N28.81 Hypertrophy of kidney; N28.89 Other specified disorders of kidney and ureter; Z80.0 Family history of malignant neoplasm of digestive organs; Z82.3 Family history of stroke; Z68.35 Body mass index [BMI] 35.0-35.9, adult; Z88.5 Allergy status to narcotic agent; Z90.49 Acquired absence of other specified parts of digestive tract; Z79.899 Other long term (current) drug therapy; Z82.5 Family history of asthma and other chronic lower respiratory diseases
CPT/HCPCS: 36415; 74176; 80053; 81001; 83605; 83735; 84145; 85025; 85610; 85730; 87040; 87088; 96365; 99285; G0378; J0692; J0696; J1650; J7030

== ENCOUNTER 2019-09-02 13:32 | Outpatient (CLI) | payer OTHER ==
[~2019-09-02 13:32] MED LIST changes: -ACET-2119 PO; +CIPR-259 PO; +DOCU100C40 PO; +HYDR-3965 PO; +LACT1CAP26 PO; -PANT40TA4 PO; +PHEN-786 PO
[2019-09-03] MEDS ORDERED: gadobutrol 10mmol/10ml inj. IV ONE (08:36)
[2019-09-03] MEDS ORDERED: GADOPENTETATE DIMEGLUMINE 2.5 MMOL/5 ML VIAL IV ONE (08:37)
== END 2019-09-02 23:59 | disposition home or self-care (01) ==
LOC: RAD 13:32
PROVIDERS: ATTEND Family Medicine
DX: K76.89 Other specified diseases of liver (principal); E83.51 Hypocalcemia
CPT/HCPCS: 74183; A9585; Q9963

== ENCOUNTER 2019-11-01 12:15 | Outpatient (CLI) | payer OTHER ==
[2019-11-01 12:57] LABS: CLARITY,URINE CLEAR (Clear); COLOR,URINE YELLOW (Yellow); GLUCOSE, URINE NEGATIVE (Neg); KETONES,URINE NEGATIVE (Neg); LEUKOCYTE ESTERASE ,URINE NEGATIVE (Neg); NITRITES, URINE NEGATIVE (Neg); OCCULT BLOOD,URINE NEGATIVE (Neg); PH,URINE 6.5 (4.8-8.0); PROTEIN,URINE NEGATIVE (Neg); UROBILINOGEN,URINE 0.2 E.U/dL (0.2-1.0)
[2019-11-01 12:59] LABS: BASOPHILS # (AUTO) 0.1 X10'3 (0-0.2); BASOPHILS % (AUTO) 1.2 % (0-1); EOSINOPHILS # (AUTO) 0.4 X10'3 (0-0.9); EOSINOPHILS % (AUTO) 5.7 % (0-6); HEMATOCRIT 39.5 % (42.0-52.0); HEMOGLOBIN 13.3 g/dl (14.0-17.9); LYMPHOCYTES # (AUTO) 1.5 X10'3 (1.1-4.8); LYMPHOCYTES % (AUTO) 21.3 % (21-51); MEAN CORPUSCULAR HEMOGLOBIN 28.8 PG (27.0-31.0); MEAN CORPUSCULAR HGB CONC 33.8 g/dL (33.0-36.5); MEAN CORPUSCULAR VOLUME 85.4 FL (78-98); MEAN PLATELET VOLUME 8.3 FL (7.4-10.4); MONOCYTES # (AUTO) 0.5 X10'3 (0-0.9); MONOCYTES % (AUTO) 7.3 % (2-12); NEUTROPHILS # (AUTO) 4.5 X10'3 (1.8-7.7); NEUTROPHILS % (AUTO) 64.5 % (42-75); PLATELET COUNT 184 X10'3 (140-440); RED BLOOD COUNT 4.63 X10'6 (4.70-6.10); RED CELL DISTRIBUTION WIDTH 15.2 % (11.5-14.5); WHITE BLOOD COUNT 6.9 X10'3 (4.5-11.0)
[2019-11-01 13:00] LABS: UA COLLECTION TYPE CLN CATCH MIDSTREAM
[2019-11-01 13:08] LABS: ALANINE AMINOTRANSFERASE 15 U/L (12-78); ALBUMIN 3.4 G/DL (3.4-5.0); ALBUMIN/GLOBULIN RATIO 1.1 (1.1-1.5); ALKALINE PHOSPHATASE 96 IU/L (46-116); ANION GAP 7 (8-16); ASPARTATE AMINO TRANSFERASE 15 U/L (10-37); BILIRUBIN,TOTAL 0.6 MG/DL (0.1-1.0); BLOOD UREA NITROGEN 14 MG/DL (7-18); BUN/CREATININE RATIO 18.2 (5.4-32.0); CALCIUM 8.9 MG/DL (8.5-10.1); CHLORIDE 108 MMOL/L (99-107); CHOL/HDL RATIO 3.9 (0.00-4.99); CHOLESTEROL 150 MG/DL (0-200); CREATININE 0.77 MG/DL (0.60-1.10); GLUCOSE 91 MG/DL (70-104); HDL CHOLESTEROL 38 MG/DL (35-60); LDL CHOLESTEROL 95 MG/DL (50-100); SODIUM 144 MMOL/L (135-145); TOTAL CARBON DIOXIDE 29.1 MMOL/L (24-32); TOTAL PROTEIN 6.5 G/DL (6.4-8.2); TRIGLYCERIDES 99 MG/DL (20-135); eGFR > 90 ML/MIN
== END 2019-11-01 23:59 | disposition home or self-care (01) ==
LOC: LAB 12:15
PROVIDERS: ATTEND Family Medicine
DX: M17.12 Unilateral primary osteoarthritis, left knee (principal); M25.571 Pain in right ankle and joints of right foot; M77.31 Calcaneal spur, right foot; M79.89 Other specified soft tissue disorders; M77.32 Calcaneal spur, left foot; M19.071 Primary osteoarthritis, right ankle and foot; M19.042 Primary osteoarthritis, left hand; Z00.00 Encounter for general adult medical examination without abnormal findings
CPT/HCPCS: 36415; 73130; 73564; 73590; 73610; 80053; 80061; 81003; 84402; 84403; 85025

== ENCOUNTER 2019-11-18 10:22 | Emergency (ER) | payer OTHER ==
[~2019-11-18] VITALS: Ht 182.9 cm; Wt 150.4 kg
[2019-11-18 10:42] VITALS: BP 162/93
--- NOTE | 2019-11-18 11:59 | NUR ---
VIKY Fierro at bedside.
[2019-11-18] MEDS ORDERED: HYDROcodone/acetaminophen 10/325mg tab PO ONE (12:05)
[2019-11-18] MEDS ORDERED: ketorolac trometh inj. 60 MG/2 ML VIAL IM ONE (12:05)
[2019-11-18] MEDS ORDERED: HYDR-4353 PO (12:16)
[2019-11-18] MEDS ORDERED: METH4TAB81 PO (12:16)
== END 2019-11-18 12:35 | disposition home or self-care (01) ==
LOC: ER 10:24
DX: S86.811A Strain of other muscle(s) and tendon(s) at lower leg level, right leg, initial encounter (principal); M17.11 Unilateral primary osteoarthritis, right knee; G47.30 Sleep apnea, unspecified; E11.9 Type 2 diabetes mellitus without complications; Z87.442 Personal history of urinary calculi; Z90.49 Acquired absence of other specified parts of digestive tract; Z98.890 Other specified postprocedural states; Z88.5 Allergy status to narcotic agent; Z79.899 Other long term (current) drug therapy; X50.1XXA Overexertion from prolonged static or awkward postures, initial encounter; Y93.89 Activity, other specified; Y92.89 Other specified places as the place of occurrence of the external cause; Y99.8 Other external cause status
CPT/HCPCS: 73564; 96372; 99284; J1885

== ENCOUNTER 2019-12-07 15:35 | Outpatient (CLI) | payer OTHER ==
[~2019-12-07 15:35] MED LIST changes: +METH4TAB81 PO
[2019-12-07 16:39] LABS: ALBUMIN 3.4 G/DL (3.4-5.0); ANION GAP 7 (8-16); BLOOD UREA NITROGEN 21 MG/DL (7-18); BUN/CREATININE RATIO 24.7 (5.4-32.0); CALCIUM 9.1 MG/DL (8.5-10.1); CHLORIDE 109 MMOL/L (99-107); CREATININE 0.85 MG/DL (0.60-1.10); GLUCOSE 103 MG/DL (70-104); POTASSIUM 3.8 MMOL/L (3.5-5.1); SODIUM 147 MMOL/L (135-145); TOTAL CARBON DIOXIDE 31.2 MMOL/L (24-32); eGFR > 90 ML/MIN
== END 2019-12-07 23:59 | disposition home or self-care (01) ==
LOC: LAB 15:35
PROVIDERS: ATTEND Urology
DX: N20.0 Calculus of kidney (principal)
CPT/HCPCS: 36415; 80048

== ENCOUNTER → 2020-01-06 | Outpatient (CLI) | payer OTHER ==
[~2020-01-06] MED LIST changes: +iohexol 300mg/ml 100ml inj. ONE
== END | disposition home or self-care (01) ==
LOC: 64 CT 13:50
PROVIDERS: ATTEND Urology
DX: N20.0 Calculus of kidney (principal); D49.511 Neoplasm of unspecified behavior of right kidney; K76.89 Other specified diseases of liver; K57.30 Diverticulosis of large intestine without perforation or abscess without bleeding; K43.9 Ventral hernia without obstruction or gangrene; M16.11 Unilateral primary osteoarthritis, right hip
CPT/HCPCS: 74178; Q9967

== ENCOUNTER 2020-02-29 10:20 | Outpatient (CLI) | payer OTHER ==
[~2020-02-29 10:20] MED LIST changes: -iohexol 300mg/ml 100ml inj. ONE
[2020-02-29 11:08] LABS: CLARITY,URINE CLEAR (Clear); COLOR,URINE YELLOW (Yellow); GLUCOSE, URINE NEGATIVE (Neg); KETONES,URINE NEGATIVE (Neg); LEUKOCYTE ESTERASE ,URINE TRACE (Neg); NITRITES, URINE NEGATIVE (Neg); OCCULT BLOOD,URINE NEGATIVE (Neg); PH,URINE 5.5 (4.8-8.0); PROTEIN,URINE NEGATIVE (Neg); UROBILINOGEN,URINE 0.2 E.U/dL (0.2-1.0)
[2020-02-29 11:11] LABS: UA COLLECTION TYPE CLN CATCH MIDSTREAM
[2020-02-29 11:12] LABS: BASOPHILS # (AUTO) 0.1 X10'3 (0-0.2); BASOPHILS % (AUTO) 1.2 % (0-1); EOSINOPHILS # (AUTO) 0.3 X10'3 (0-0.9); EOSINOPHILS % (AUTO) 5.2 % (0-6); HEMATOCRIT 39.5 % (42.0-52.0); HEMOGLOBIN 13.4 g/dl (14.0-17.9); LYMPHOCYTES # (AUTO) 1.2 X10'3 (1.1-4.8); MEAN CORPUSCULAR HEMOGLOBIN 29.5 PG (27.0-31.0); MEAN CORPUSCULAR HGB CONC 33.9 g/dL (33.0-36.5); MEAN CORPUSCULAR VOLUME 87.2 FL (78-98); MEAN PLATELET VOLUME 8.1 FL (7.4-10.4); MONOCYTES # (AUTO) 0.5 X10'3 (0-0.9); MONOCYTES % (AUTO) 7.5 % (2-12); NEUTROPHILS % (AUTO) 66.1 % (42-75); PLATELET COUNT 194 X10'3 (140-440); RED BLOOD COUNT 4.53 X10'6 (4.70-6.10); RED CELL DISTRIBUTION WIDTH 14.4 % (11.5-14.5)
[2020-02-29 11:33] LABS: WBC,URINE 50-100 /HPF (0-4)
[2020-02-29 11:34] LABS: BACTERIA,URINE 2+ /HPF (Neg); RBC,URINE 0-2 /HPF (0-2); SQUAMOUS EPITHELIAL CELL,UR FEW /LPF (FEW)
[2020-02-29 11:35] LABS: MUCUS STRANDS FEW /LPF (Neg)
[2020-02-29 11:36] LABS: WBC CLUMPS,URINE FEW /HPF (NEGATIVE)
[2020-02-29 11:37] LABS: ALANINE AMINOTRANSFERASE 20 U/L (12-78); ALBUMIN 3.4 G/DL (3.4-5.0); ALBUMIN/GLOBULIN RATIO 1.1 (1.1-1.5); ALKALINE PHOSPHATASE 100 IU/L (46-116); ANION GAP 7 (8-16); ASPARTATE AMINO TRANSFERASE 21 U/L (10-37); BILIRUBIN,TOTAL 0.8 MG/DL (0.1-1.0); BLOOD UREA NITROGEN 16 MG/DL (7-18); BUN/CREATININE RATIO 16.5 (5.4-32.0); CALCIUM 8.7 MG/DL (8.5-10.1); CHLORIDE 110 MMOL/L (99-107); CHOL/HDL RATIO 4.5 (0.00-4.99); CHOLESTEROL 188 MG/DL (0-200); CREATININE 0.97 MG/DL (0.60-1.10); GLUCOSE 104 MG/DL (70-104); HDL CHOLESTEROL 42 MG/DL (35-60); LDL CHOLESTEROL 126 MG/DL (50-100); SODIUM 146 MMOL/L (135-145); TOTAL CARBON DIOXIDE 28.7 MMOL/L (24-32); TOTAL PROTEIN 6.5 G/DL (6.4-8.2); TRIGLYCERIDES 58 MG/DL (20-135); eGFR 80 ML/MIN
== END 2020-02-29 23:59 | disposition home or self-care (01) ==
LOC: LAB 10:20
PROVIDERS: ATTEND Family Medicine
DX: Z00.00 Encounter for general adult medical examination without abnormal findings (principal)
CPT/HCPCS: 36415; 80053; 80061; 81001; 84153; 84439; 84443; 85025